=== PATIENT | male | born 1930 | race Caucasian/White ===

== ENCOUNTER 2017-10-01 10:45 | Inpatient (IN) | payer OTHER, MEDICARE ==
--- NOTE | 2017-10-01 11:58 | PDOC ---
History of Present Illness - General History Source: Patient, Sibling (Sister) Exam Limitations: No Limitations - History of Present Illness Initial Comments: Pt, with PMH of prostate CA, A-fib (on warfarin), HTN, cardiac bypass, and UTI, presents to the ER for complaints of generalized fatigue and weakness, and decreased appetite over the past week ("just not feeling well"). He has been consuming PO liquids and having increased urinary volume due to a pill given to him by his urologist (Dr. Ward). He has had decreased appetite and has not been eating his usual amount, associated with a small amount of stool over the past 2 days. He denies fevers/chills, syncope, vertigo, chest pain, SOB, abdominal pain, diarrhea/constipation, urinary frequency or dysuria, hematuria or blood in BM, joint pain, or leg swelling. His sister and nephew are at bedside, and deny any behavior changes or AMS. Pt is able to ambulate on his own and perform his ADLs. 10/01/17 12:33 <Ora Valentine - Last Filed: 10/01/17 16:08> <Sallie Ayoub - Last Filed: 10/01/17 16:12> - General Chief Complaint: Weakness Stated Complaint: Weakness Time Seen by Provider: 10/01/17 11:56 Past History - Travel Traveled outside of the country in the last 30 days: No Close contact w/someone who was outside of country & ill: No - Past Medical History Anemia: No Asthma: No Cancer: Yes (prostate) Cardiac Disorders: Yes (CAD/bypass) Hx Myocardial Infarction: No CVA: No COPD: No CHF: No Dementia: No Diabetes: No GI Disorders: No Disorders: No HTN: Yes Hypercholesterolemia: No Liver Disease: No Seizures: No Thyroid Disease: No - Surgical History Abdominal Surgery: No Appendectomy: No Cardiac Surgery: Yes (By pass) Cholecystectomy: No Lung Surgery: No Neurologic Surgery: No Orthopedic Surgery: No - Suicide/Smoking/Psychosocial Hx Smoking History: Former smoker Have you smoked in the past 12 months: No If you are a former smoker, when did you quit?: 1984 Information on smoking cessation initiated: No Hx Alcohol Use: No Drug/Substance Use Hx: No Substance Use Type: None Hx Substance Use Treatment: No <Ora Valentine - Last Filed: 10/01/17 16:08> <Sallie Ayoub - Last Filed: 10/01/17 16:12> - Past Medical History Allergies/Adverse Reactions: Allergies Allergy/AdvReac Type Severity Reaction Status Date / Time No Known Drug Allergies AdvReac Severe Verified 10/01/17 11:03 nystatin [From Bio-Statin] AdvReac Severe Verified 10/01/17 11:04 Home Medications: Ambulatory Orders Amlodipine Besylate [Norvasc] 10 mg PO DAILY 08/03/12 Lisinopril [Prinivil] 40 mg PO DAILY 08/03/12 Cyanocobalamin [Vitamin B12 -] 1,000 mcg PO DAILY 01/08/15 Review of Systems - Review of Systems Able to Perform ROS?: Yes Is the patient limited Beninese proficient: No Constitutional: Yes: Loss of Appetite, Malaise, Weakness, Weight Stable. No: Chills, Diaphoresis, Fever, Night Sweats HEENTM: No: Blurred Vision, Recent change in vision, Hearing Loss, Difficulty Swallowing Respiratory: No: Cough, Orthopnea, Shortness of Breath Cardiac (ROS): No: Chest Pain, Edema, Irregular Heart Rate, Lightheadedness, Palpitations, Syncope, Chest Tightness ABD/GI: Yes: Poor Appetite. No: Abdominal Distended, Blood Streaked Bowels, Constipated, Diarrhea, Nausea, Poor Fluid Intake, Rectal Bleeding, Vomiting, Abdominal cramping : No: Burning, Dysuria, Discharge, Frequency, Flank Pain, Hematuria, Incontinence, Pain, Urgency Musculoskeletal: Yes: Muscle Weakness. No: Back Pain, Joint Pain, Joint Swelling, Muscle Pain Integumentary: No: Rash, Sweating Neurological: Yes: Weakness. No: Headache, Numbness, Seizure, Unsteady Gait, Ataxia, Dizziness Psychiatric: Yes: Change in Appetite. No: Sleep Pattern Change Endocrine: Yes: Increased Urine. No: Increased Thirst, Change in Weight Hematologic/Lymphatic: No: Anemia, Blood Clots, Easy Bleeding All Other Systems: Reviewed and Negative <Ora Valentine - Last Filed: 10/01/17 16:08> *Physical Exam - Vital Signs Last Vital Signs Temp Pulse Resp BP Pulse Ox 98 F 81 14 110/63 98 10/01/17 11:04 10/01/17 11:04 10/01/17 11:04 10/01/17 11:04 10/01/17 11:04 - Physical Exam General Appearance: Yes: Nourished, Appropriately Dressed, Thin. No: Apparent Distress HEENT: positive: EOMI, PK, Normal ENT Inspection, Normal Voice, Pharynx Normal , Hearing Grossly Normal. negative: Scleral Icterus (R), Scleral Icterus (L), Pharyngeal Erythema, Tonsillar Exudate, Tonsillar Erythema, Rhinorrhea Neck: positive: Trachea midline, Normal Thyroid, Supple. negative: Tender, Rigid, Lymphadenopathy (R), Lymphadenopathy (L) Respiratory/Chest: positive: Lungs Clear. negative: Chest Tender, Normal Breath Sounds (crackles over R posterior lung field), Respiratory Distress, Accessory Muscle Use, Stridor, Wheezing, Dullness Cardiovascular: positive: Regular Rhythm, Regular Rate, S1, S2. negative: Edema , JVD, Murmur Vascular Pulses: Dorsalis-Pedis (R): 4+, Doralis-Pedis (L): 4+ Gastrointestinal/Abdominal: positive: Normal Bowel Sounds, Flat, Soft. negative : Tender, Organomegaly, Pulsatile Mass, Guarding, Rebound, Tenderness Rectal Exam: positive: deferred Lymphatic: negative: Adenopathy, Tenderness Musculoskeletal: positive: Normal Inspection. negative: CVA Tenderness Extremity: positive: Normal Capillary Refill, Normal Inspection, Normal Range of Motion, Pelvis Stable. negative: Tender Integumentary: positive: Normal Color, Dry, Warm Neurologic: positive: document control clerk II-XII NML intact, Fully Oriented, Alert, Normal Mood/ Affect, Normal Response, Motor Strength 5/5. negative: EOM Palsy, Facial Droop , Numbness, Sensory Deficit <Ora Valentine - Last Filed: 10/01/17 16:08> - Vital Signs Last Vital Signs Temp Pulse Resp BP Pulse Ox 98.9 F 70 16 123/73 98 10/01/17 15:30 10/01/17 15:30 10/01/17 15:30 10/01/17 15:30 10/01/17 15:30 <Sallie Ayoub - Last Filed: 10/01/17 16:12> Heart Score/ECG Review - History History: Slightly suspicious - Age Age: >/= 65 - Risk Factors Risk Factors Heart Score: Yes Hx Hypertension Based on the list above the patient has:: 1-2 risk factors - ECG Impressions Non-specific ST Elevation: No Ischemic Changes: No Bradycardia: No Torsades uvaldo Pointes: No WPW: No Comment:: Rate: 71 AL: 232 QTc: 456 10/01/17 12:46 <Ora Valentine - Last Filed: 10/01/17 16:08> ED Treatment Course - LABORATORY CBC & Chemistry Diagram: 10/01/17 13:30 10/01/17 13:30 <Ora Valentine - Last Filed: 10/01/17 16:08> - LABORATORY CBC & Chemistry Diagram: 10/01/17 13:30 10/01/17 13:30 - ADDITIONAL ORDERS Additional order review: Laboratory Results 10/01/17 10/01/17 10/01/17 14:18 13:30 13:30 WBC RBC Hgb Hct MCV MCH MCHC RDW Plt Count MPV Absolute Neuts (auto) Neutrophils % Lymphocytes % Monocytes % Eosinophils % Basophils % Nucleated RBC % PT with INR INR PTT (Actin FS) Sodium 136 Potassium 4.4 Chloride 101 Carbon Dioxide 28 Anion Gap 7 L BUN 40 H Creatinine 1.5 H Creat Clearance w eGFR 44.37 Random Glucose 113 H Calcium 8.5 Total Bilirubin 0.4 AST 25 D ALT 28 D Alkaline Phosphatase 69 Troponin I Cancelled < 0.02 Total Protein 6.9 Albumin 3.2 L Urine Color Dkyellow Urine Appearance Cloudy Urine pH 5.0 Ur Specific [place] 1.018 Urine Protein 2+ H Urine Glucose (UA) Negative Urine Ketones Negative Urine Blood 2+ H Urine Nitrite Positive Urine Bilirubin Negative Urine Urobilinogen Negative Ur Leukocyte Esterase 3+ H D Urine WBC (Auto) 1277 Urine RBC (Auto) 5 Ur Epithelial Cells Rare Urine Bacteria Many Hyaline Casts 4 Urine Mucus Rare 10/01/17 10/01/17 13:30 13:30 WBC 7.9 RBC 4.41 Hgb 12.9 Hct 37.9 MCV 86.1 MCH 29.3 MCHC 34.0 RDW 14.5 D Plt Count 189 D MPV 9.0 Absolute Neuts (auto) 6.4 Neutrophils % 80.2 Lymphocytes % 8.4 Monocytes % 11.0 H Eosinophils % 0.1 Basophils % 0.3 Nucleated RBC % 0 PT with INR 24.60 H INR 2.18 H PTT (Actin FS) 32.0 Sodium Potassium Chloride Carbon Dioxide Anion Gap BUN Creatinine Creat Clearance w eGFR Random Glucose Calcium Total Bilirubin AST ALT Alkaline Phosphatase Troponin I Total Protein Albumin Urine Color Urine Appearance Urine pH Ur Specific [place] Urine Protein Urine Glucose (UA) Urine Ketones Urine Blood Urine Nitrite Urine Bilirubin Urine Urobilinogen Ur Leukocyte Esterase Urine WBC (Auto) Urine RBC (Auto) Ur Epithelial Cells Urine Bacteria Hyaline Casts Urine Mucus 10/01/17 13:30 RBC 4.41 MCV 86.1 MCHC 34.0 RDW 14.5 D MPV 9.0 Neutrophils % 80.2 Lymphocytes % 8.4 Monocytes % 11.0 H Eosinophils % 0.1 Basophils % 0.3 - Medications Given in the ED: ED Medications Discontinued Medications Generic Name Dose Route Start Last Admin Trade Name Freq PRN Reason Stop Dose Admin Sodium Chloride 500 mls @ 1,000 mls/hr 10/01/17 12:20 10/01/17 13:56 Normal Saline - IV 10/01/17 12:49 Not Given ASDIR STA Sodium Chloride 1,000 mls @ 1,000 mls/hr 10/01/17 12:28 10/01/17 13:56 Normal Saline - IV 10/01/17 13:19 1,000 mls/hr ASDIR STA Administration Ceftriaxone Sodium 1,000 mg/ 50 mls @ 100 mls/hr 10/01/17 15:04 10/01/17 15: 06 Dextrose IVPB 10/01/17 15:33 100 mls/hr ONCE ONE Administration <Sallie Ayoub - Last Filed: 10/01/17 16:12> Medical Decision Making - Medical Decision Making Pt seen at bedside, also will be seen by Dr. Ayoub. Pt appears comfortable, vitals stable, complaining of generalized weakness/decreased appetite over past week. No focal findings on exam. Considering prior UTIs, use of blood thinners and prior history of prostate cancer, considering infection (UTI/pneumonia) vs electrolyte abnormalities vs anemia vs mets. Ordered CBC, CMP, ECG/trop (r/o ACS ), UA, urine culture, coags chest x-ray PA/Lat. Providing 1 L NS and will assess improvement. Pt has no history of CHF or fluid overload. 10/01/17 12:30 Chest x-ray shows no acute pathology. CBC WNL. Urine sample sent for UA and culture. Pt receiving 1L NS. Pt comfortable in holding room. 10/01/17 14:27 UA positive for UTI. No increased WBC, no CVA tenderness. Will provide 1g ceftriaxone IV for infection. Will admit for observation given pt weakness, decreased appetite. 10/01/17 15:[address] Nicholson to discuss admission (per cargo operations agent), and will discuss if consult with Dr. Ward is needed. Pt receiving antibiotics. 10/01/17 15:[address] Nicholson, awaiting call back. 10/01/17 15:21 Will admit to observation per Dr. Nicholson. Placed consult order for Dr. Ward. Pt comfortable. 10/01/17 15:27 <Ora Valentine - Last Filed: 10/01/17 16:08> *DC/Admit/Observation/Transfer - Discharge Dispostion Decision to Admit order: Yes <Ora Valentine - Last Filed: 10/01/17 16:08> <Sallie Ayoub - Last Filed: 10/01/17 16:12> Diagnosis at time of Disposition: [place] (acute kidney injury) Urinary tract infection Qualifiers: Urinary tract infection type: acute cystitis Hematuria presence: with hematuria Qualified Code(s): N30.01 - Acute cystitis with hematuria - Discharge Dispostion Condition at time of disposition: Stable - Referrals Referrals: Aram Nicholson MD [Primary Care Provider] - - Patient Instructions - Post Discharge Activity
[2017-10-01] MEDS ORDERED: SODIUM CHLORIDE 500 ML IV STA (12:20)
[2017-10-01] MEDS ORDERED: SODIUM CHLORIDE 1,000 ML IV STA (12:28)
[2017-10-01 14:10] LABS: BASO % 0.3 % (0-2.0); EOS % 0.1 % (0-4.5); HEMATOCRIT 37.9 % (35.4-49); HEMOGLOBIN 12.9 GM/dL (11.7-16.9); LYMPH % 8.4 % (8-40); MCH 29.3 pg (25.7-33.7); MEAN CELL VOLUME 86.1 fl (80-96); NEUT % 80.2 % (42.8-82.8); PLATELET COUNT 189 K/MM3 (134-434); RBC 4.41 M/mm3 (4.00-5.60); RDW 14.5 % (11.9-15.9); WHITE BLOOD COUNT 7.9 K/mm3 (4.0-10.0)
--- NOTE | 2017-10-01 14:12 | PDOC ---
Attending Attestation - Medical Decision Making 10/01/17 14:17 Chest X-Ray was reviewed by Dr. Ayoub and over-read by Radiology. Impression: Antwon of cardiomegaly, CHF, pneumonia. No pneumothorax, or pleural effusion is seen. <Poonam Spaulding - Last Filed: 10/01/17 14:17> - Resident Resident Name: Ora Valentine - ED Attending Attestation I have performed the following: I have examined & evaluated the patient, The case was reviewed & discussed with the resident, I agree w/resident's findings & plan - HPI HPI: 10/01/17 16:08 87-year-old male, with a past medical history of BPH, prostate cancer (in remission), a-fib (on Coumadin), HTN, hyperlipidemia, COPD, and osteoarthritis, who presents to the ED with 1 week of frequency, loss of appetite, and weakness. - Physicial Exam PE: 10/01/17 16:08 NAD, well appearing, MMM, nl conjunctiva, anicteric; neck supple. lungs clear, RRR, abdomen soft nontender. no CVAT. VALDEZ x4, no focal neuro deficits. No peripheral edema. normal color for ethnicity, WWP. - Medical Decision Making Difrancesco 87 YOM with h/o BPH, prostate ca in remission, UTIs, Afib on coumadin, HTN, HLD, osteoarthritis, COPD Presenting with 1 week history of generalized weakness, decreased appetite. +urinary frequency. Vital signs reviewed, wnl. no fever. Medical Plan: CBC, CMP, UA, urine cx, ECG, trops/card panel, CXR Prior notes reviewed, including admissions, discharges and consultations. laboratory results and imaging reviewed, notable for elevated Cr to 1.5 and positive UA for infection, will f/u urine cs. . will dose IVF for hydration and trend Cr, ceftriaxone for UTI. Dispo: Admit for UTI and weakness, [place]. Discussed results and management plan with pt at bedside, agree with impression and plan 10/01/17 16:06 10/01/17 16:10 10/01/17 16:11 <Sallie Ayoub - Last Filed: 10/01/17 16:11> Heart Score/ECG Review - ECG Impressions Comment:: 10/01/17 16:08 EKG normal sinus rhythm, no interval abnormalities, narrow QRS, ST and T wave segments and morphology normal. Nonspecific T wave abnormalities <Sallie Ayoub - Last Filed: 10/01/17 16:11>
[2017-10-01 14:23] LABS: INR 2.18 (0.83-1.09); PROTHROMBIN TIME (PATIENT) 24.6 SEC (9.7-13.0)
[2017-10-01 14:26] LABS: URINE APPEARANCE CLOUDY; URINE BILIRUBIN NEGATIVE (<2.0 mg/dL); URINE COLOR DKYELLOW; URINE GLUCOSE (UA) NEGATIVE (NEGATIVE); URINE KETONE NEGATIVE (NEGATIVE); URINE NITRITE POSITIVE (NEGATIVE); URINE UROBILINOGEN NEGATIVE mg/dL (0.2-1.0)
[2017-10-01 14:30] LABS: URINE LEUK ESTERASE 3+ (NEGATIVE); URINE PROTEIN 2+ (NEGATIVE)
[2017-10-01 14:32] LABS: ALBUMIN 3.2 g/dl (3.4-5.0); ANION GAP 7 (8-16); BILIRUBIN,TOTAL 0.4 mg/dL (0.2-1.0); BLOOD UREA NITROGEN 40 mg/dL (7-18); CALCIUM 8.5 mg/dL (8.5-10.1); CHLORIDE 101 mmol/L (98-107); CO2 28 mmol/L (21-32); CREATININE 1.5 mg/dL (0.7-1.3); GLUCOSE,RANDOM 113 mg/dL (74-106); POTASSIUM 4.4 mmol/L (3.5-5.1); SGOT/AST 25 U/L (15-37); SGPT/ALT 28 U/L (12-78); SODIUM 136 mmol/L (136-145); TOT PROT 6.9 g/dl (6.4-8.2)
[2017-10-01 14:34] LABS: ALK PHOS 69 U/L (45-117)
[2017-10-01 14:47] LABS: EPI CELLS RARE /HPF (FEW); URINE BACTERIA MANY /hpf (NONE SEEN); URINE HYALINE CAST 4 /lpf; URINE MUCUS RARE
[2017-10-01] MEDS ORDERED: CEFTRIAXONE 1,000 MG in DEXTROSE 5%-WATER - 50 ML IVPB ONE (15:04)
[2017-10-01] MEDS ORDERED: CEFTRIAXONE 1 GM/50 ML BAG ONE (15:07)
--- NOTE | 2017-10-01 18:41 | HP ---
Admitting History and Physical - Primary Care Physician PCP: Aram Nicholson - Admission Chief Complaint: weakness x 3 days History of Present Illness: 87 YO M with PMH of prostate CA (2002--s/p seed implants), prostatism, bladder neoplasm, A-fib (on warfarin), HTN, and Hx of UTI, presents to the ER for complaints of generalized fatigue and weakness, and decreased appetite since this past Thursday. He denies aches and pains, n-v, dizziness, dysuria, blood in stool or urine. He has been consuming PO liquids and having increased urinary volume due to a pill given to him by his urologist (Dr. Ward) 2 weeks ago. He feels somehat better now and seems to have regained a little bit of appetite. History Source: Patient, Medical Record - Past Medical History Cardiovascular: Yes: AFIB, HTN, Hyperlipdemia, Other (s/p stenting) Pulmonary: Yes: COPD Gastrointestinal: Yes: Diverticulosis, Other (Lt ing hernia) Renal/: Yes: Renal Inusuff (mild), Renal Calculi (Lt side) Musculoskeletal: Yes: Chronic low back pain, Osteoarthritis - Smoking History Smoking history: Former smoker Have you smoked in the past 12 months: No If you are a former smoker, when did you quit?: 1984 - Alcohol/Substance Use Hx Alcohol Use: No History of Substance Use: reports: None - Social History Usual Living Arrangement: Yes: Other (with relatives) ADL: Independent 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 History of Recent Travel: No Home Medications - Allergies Allergies/Adverse Reactions: Allergies Allergy/AdvReac Type Severity Reaction Status Date / Time No Known Drug Allergies AdvReac Severe Verified 10/01/17 11:03 nystatin [From Bio-Statin] AdvReac Severe Verified 10/01/17 11:04 - Home Medications Home Medications: Ambulatory Orders Amlodipine Besylate [Norvasc] 10 mg PO DAILY 08/03/12 Lisinopril [Prinivil] 40 mg PO DAILY 08/03/12 Cyanocobalamin [Vitamin B12 -] 1,000 mcg PO DAILY 01/08/15 Family Disease History - Family Disease History Family History: Unremarkable Review of Systems - Review of Systems Constitutional: reports: Weakness Eyes: reports: No Symptoms HENT: reports: No Symptoms Neck: reports: No Symptoms Cardiovascular: reports: No Symptoms Respiratory: reports: No Symptoms Gastrointestinal: reports: No Symptoms Genitourinary: reports: Frequency Breasts: reports: No Symptoms Reported Musculoskeletal: reports: No Symptoms Integumentary: reports: No Symptoms Neurological: reports: No Symptoms Endocrine: reports: No Symptoms Hematology/Lymphatic: reports: No Symptoms Psychiatric: reports: No Symptoms Physical Examination Vital Signs: Vital Signs Temperature 98.9 F 10/01/17 15:30 Pulse Rate 70 10/01/17 15:30 Respiratory Rate 16 10/01/17 15:30 Blood Pressure 123/73 10/01/17 15:30 O2 Sat by Pulse Oximetry (%) 98 10/01/17 15:30 Findings/Remarks: skin--no rashes; acute lesions appreciated head--NC eyes--midline; anicteric; eomi oral--no droop; no mucosal lesions appreciated neck--supple, no masses lungs--distant BS; unlabored; clear heart--irreg abd--benign; Lt hernia back--no CVAT ext--no edema; degen changes of feet & ankles; no gross ischemic changes neuro--alert; lucid to his baseline; coherent; no focla motor/sensory deficits or ataxia; speech fluent; thoughts & cognition intact Labs: CBC, BMP 10/01/17 13:30 10/01/17 13:30 Imaging - Results Chest X-ray: Report Reviewed Problem List - Problems (1) Urinary tract infection Assessment/Plan: based on the UA; will initiate Abs, await for culture reports. Code(s): N39.0 - URINARY TRACT INFECTION, SITE NOT SPECIFIED Qualifiers: Urinary tract infection type: acute cystitis Hematuria presence: with hematuria Qualified Code(s): N30.01 - Acute cystitis with hematuria (2) Dehydration, moderate Assessment/Plan: 2nd poor po intake during this acute development; gentle IV hydration Code(s): E86.0 - DEHYDRATION (3) Atrial fibrillation Assessment/Plan: resume a-c Code(s): I48.91 - UNSPECIFIED ATRIAL FIBRILLATION Qualifiers: Atrial fibrillation type: chronic Qualified Code(s): I48.2 - Chronic atrial fibrillation (4) Hypertension Assessment/Plan: Bp okay at this time; will hold CCB and CELINA for now until better hydrated Code(s): I10 - ESSENTIAL (PRIMARY) HYPERTENSION Qualifiers: Hypertension type: essential hypertension Qualified Code(s): I10 - Essential (primary) hypertension Assessment/Plan 87 YO M with multiple medical problems on a-c; who has a UTI and is dehydrated, amid c/o systemic weakness ~~~~~~~~~~~~~~~~~ dr Nicholson
[2017-10-01] MEDS ORDERED: WARFARIN NA 3 MG TABLET PO ONE (19:00)
[2017-10-01] MEDS ORDERED: WARFARIN NA 1 MG TABLET (FP) PO ONE (19:00)
[2017-10-01] MEDS: DEXTROSE 5%-0.45% SALINE 1,000 ML IV SCH (22:13)
[2017-10-02 03:50] VITALS: BMI 20.2
[2017-10-02 08:26] LABS: HEMATOCRIT 34.6 % (35.4-49); HEMOGLOBIN 11.9 GM/dL (11.7-16.9); MCH 29.4 pg (25.7-33.7); MCHC 34.2 g/dl (32.0-35.9); MEAN CELL VOLUME 85.8 fl (80-96); MEAN PLT VOLUME 8.7 fl (7.5-11.1); PLATELET COUNT 170 K/MM3 (134-434); RBC 4.04 M/mm3 (4.00-5.60); RDW 14.2 % (11.9-15.9); WHITE BLOOD COUNT 11.7 K/mm3 (4.0-10.0)
[2017-10-02 08:41] LABS: PROTHROMBIN TIME (PATIENT) 37.4 SEC (9.7-13.0)
[2017-10-02 08:50] LABS: INR 3.31 (0.83-1.09)
[2017-10-02 09:01] LABS: ANION GAP 9 (8-16); BLOOD UREA NITROGEN 30 mg/dL (7-18); CALCIUM 7.7 mg/dL (8.5-10.1); CHLORIDE 105 mmol/L (98-107); CO2 24 mmol/L (21-32); CREATININE 1.4 mg/dL (0.7-1.3); GLUCOSE,RANDOM 119 mg/dL (74-106); SODIUM 138 mmol/L (136-145)
[2017-10-02] MEDS ORDERED: cefTRIAXone SODIUM 1 GM VIAL ONE (09:06)
[2017-10-02] MEDS ORDERED: DEXTROSE 5%-WATER - 50 ML IVPB ONE (09:06)
[2017-10-02] MEDS ORDERED: CEFTRIAXONE 1 GM in DEXTROSE 5%-WATER - 50 ML IVPB ONE (10:00)
[2017-10-02] MEDS ORDERED: CLOPIDOGREL BISULFATE 75 MG TABLET (FP) PO SCH (10:00)
--- NOTE | 2017-10-02 11:13 | EKG ---
Test Reason : Blood Pressure : / mmHG Vent. Rate : 071 BPM Atrial Rate : 071 BPM P-R Int : 232 ms QRS Dur : 096 ms QT Int : 420 ms P-R-T Axes : 044 014 038 degrees QTc Int : 456 ms SINUS RHYTHM WITH 1ST DEGREE A-V BLOCK WITH PREMATURE ATRIAL COMPLEXES WITH ABERRANT CONDUCTION OTHERWISE NORMAL ECG WHEN COMPARED WITH ECG OF 08-JAN-2015 08:26, SINUS RHYTHM HAS REPLACED ATRIAL FIBRILLATION Confirmed by NEETA HOPPER, DARREL ([id number]) on 10/02/2017 11:12:31 AM Referred By: Confirmed By:DARREL SANTACRUZ MD
[2017-10-02] MEDS: DEXTROSE 5%-0.45% SALINE 1,000 ML IV SCH ×2 (12:12→19:54)
[2017-10-02] MEDS ORDERED: ONDANSETRON 4 MG/2 ML VIAL IVPUSH PRN (16:31)
--- NOTE | 2017-10-02 16:39 | PN ---
Progress Note (short form) - Note Progress Note: .........medical........ Current Medications Cefuroxime Axetil (Ceftin -) 500 mg PO BID [facility] Dextrose/Sodium Chloride (D5-1/2ns -) 1,000 mls @ 75 mls/hr IV ASDIR [facility] Last Admin: 10/02/17 12:12 Dose: 75 mls/hr Metoprolol Succinate (Toprol Xl -) 25 mg PO DAILY [facility] Ondansetron HCl (Zofran Injection) 4 mg IVPUSH Q8H PRN PRN Reason: NAUSEA Laboratory Results - last 24 hr 10/02/17 10/02/17 10/02/17 07:00 07:00 07:00 WBC 11.7 H RBC 4.04 Hgb 11.9 Hct 34.6 L MCV 85.8 MCH 29.4 MCHC 34.2 RDW 14.2 Plt Count 170 MPV 8.7 PT with INR 37.40 H INR 3.31 H* Sodium 138 Potassium 4.0 Chloride 105 Carbon Dioxide 24 Anion Gap 9 BUN 30 H Creatinine 1.4 H Creat Clearance w eGFR 48.05 Random Glucose 119 H Calcium 7.7 L Vital Signs Temperature 97.6 F 10/02/17 14:56 Pulse Rate 83 10/02/17 14:56 Respiratory Rate 20 10/02/17 14:56 Blood Pressure 138/88 10/02/17 14:56 O2 Sat by Pulse Oximetry (%) 98 10/02/17 09:00 CC; nausea after lunch `````````````````````````` skin--NL color eyes--mid line heart--RR lungs--unlabored abd--soft, BS quiet ext--no edema neuro--alert; verbal; asthenic; no focal deficits `````````````````````````````````````````````` Summ > UTI--Gm (-) org pending; cont with current Abs > dehydration--renal funct improved; cont IVF > nausea--no vomiting; cause not clear; had no BM today; occured post prandially ; PRN Zofran > Htn w/ ASHD--BP okay today; will start BB in AM; Hold CCB and CELINA > pATF--on warf; rate in sinus as per EKG; hold A-c because of high INR > High glucose--on dextrose IVF ~~~~~~~~~~~~~~~~~~ Dr Nicholson Problem List - Problems (1) Urinary tract infection Code(s): N39.0 - URINARY TRACT INFECTION, SITE NOT SPECIFIED Qualifiers: Urinary tract infection type: acute cystitis Hematuria presence: with hematuria Qualified Code(s): N30.01 - Acute cystitis with hematuria (2) Dehydration, moderate Code(s): E86.0 - DEHYDRATION (3) Atrial fibrillation Code(s): I48.91 - UNSPECIFIED ATRIAL FIBRILLATION Qualifiers: Atrial fibrillation type: chronic Qualified Code(s): I48.2 - Chronic atrial fibrillation (4) Hypertension Code(s): I10 - ESSENTIAL (PRIMARY) HYPERTENSION Qualifiers: Hypertension type: essential hypertension Qualified Code(s): I10 - Essential (primary) hypertension
[2017-10-03] MEDS: DEXTROSE 5%-0.45% SALINE 1,000 ML IV SCH (02:01)
[2017-10-03 08:36] LABS: HEMATOCRIT 34.9 % (35.4-49); HEMOGLOBIN 11.9 GM/dL (11.7-16.9); MCH 29.3 pg (25.7-33.7); MCHC 34.2 g/dl (32.0-35.9); MEAN CELL VOLUME 85.8 fl (80-96); MEAN PLT VOLUME 8.6 fl (7.5-11.1); PLATELET COUNT 179 K/MM3 (134-434); RBC 4.07 M/mm3 (4.00-5.60); RDW 14.2 % (11.9-15.9); WHITE BLOOD COUNT 7.4 K/mm3 (4.0-10.0)
[2017-10-03 08:58] LABS: INR 2.93 (0.83-1.09); PROTHROMBIN TIME (PATIENT) 33.1 SEC (9.7-13.0)
[2017-10-03 09:24] LABS: ANION GAP 8 (8-16); BLOOD UREA NITROGEN 23 mg/dL (7-18); CALCIUM 7.8 mg/dL (8.5-10.1); CHLORIDE 105 mmol/L (98-107); CO2 26 mmol/L (21-32); GLUCOSE,RANDOM 127 mg/dL (74-106); POTASSIUM 4.1 mmol/L (3.5-5.1); SODIUM 139 mmol/L (136-145)
[2017-10-03 09:25] LABS: CREATININE 1.1 mg/dL (0.7-1.3)
[2017-10-03] MEDS ORDERED: CEFUROXIME AXETIL 500 MG TABLET PO SCH (10:00)
[2017-10-03] MEDS: metoPROLOL SUCCINATE 25 MG TAB.SR.24H (FP) PO SCH (10:05)
--- NOTE | 2017-10-03 14:56 | PN ---
Progress Note (short form) - Note Progress Note: ^^^^^^^^^^^^^ Medical--inpatient note ^^^^^^^^^^^^ Active Medications Cefuroxime Axetil (Ceftin -) 500 mg PO BID [facility] Last Admin: 10/03/17 10:05 Dose: 500 mg Metoprolol Succinate (Toprol Xl -) 25 mg PO DAILY [facility] Last Admin: 10/03/17 10:05 Dose: 25 mg Ondansetron HCl (Zofran Injection) 4 mg IVPUSH Q8H PRN PRN Reason: NAUSEA Warfarin Sodium (Coumadin -) 1 mg PO DAILY@1800 [facility] Laboratory Results - last 24 hr 10/03/17 10/03/17 10/03/17 07:30 07:30 07:30 WBC 7.4 RBC 4.07 Hgb 11.9 Hct 34.9 L MCV 85.8 MCH 29.3 MCHC 34.2 RDW 14.2 Plt Count 179 MPV 8.6 PT with INR 33.10 H INR 2.93 H Sodium 139 Potassium 4.1 Chloride 105 Carbon Dioxide 26 Anion Gap 8 BUN 23 H Creatinine 1.1 Creat Clearance w eGFR > 60 Random Glucose 127 H Calcium 7.8 L Vital Signs Period Temp Pulse Resp BP Sys/Gardner Pulse Ox Last 24 Hr 97.4 F-98.0 F 72-83 18-20 124-148/58-88 96-96 CC: feels "better" `````````````````` skin--NL color eyes--midline lungs--clear heart--Irreg abd--benign neuro--alert; coherent, non toxic looking `````````````````````````````````````` Summ > 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 PLAN: will need to hold Cephs; and obtain ID consult; check renal US > pATF--rate controlled; cont with BB & a/c; check daily INR > Htn--Bp in adequate range without CCB & CELINA; will hold said meds for the time being > Nausea--resolved > dehydration--resolved with IVF; will stop fluids ~~~~~~~~~~~~~~~~~ Dr Nicholson Problem List - Problems (1) Urinary tract infection Code(s): N39.0 - URINARY TRACT INFECTION, SITE NOT SPECIFIED Qualifiers: Urinary tract infection type: acute cystitis Hematuria presence: with hematuria Qualified Code(s): N30.01 - Acute cystitis with hematuria (2) Dehydration, moderate Code(s): E86.0 - DEHYDRATION (3) Atrial fibrillation Code(s): I48.91 - UNSPECIFIED ATRIAL FIBRILLATION Qualifiers: Atrial fibrillation type: chronic Qualified Code(s): I48.2 - Chronic atrial fibrillation (4) Hypertension Code(s): I10 - ESSENTIAL (PRIMARY) HYPERTENSION Qualifiers: Hypertension type: essential hypertension Qualified Code(s): I10 - Essential (primary) hypertension
[2017-10-03] MEDS ORDERED: WARFARIN NA 1 MG TABLET (FP) PO SCH (18:00)
--- NOTE | 2017-10-03 18:56 | PN ---
Progress Note (short form) - Note Progress Note: ID Consult dictated ESBL UTI Ertapenem 500mg q24h Contact precautions
[2017-10-03] MEDS ORDERED: PT OWN MED DRAWER 7, Y5N ONE (19:58)
[2017-10-03] MEDS: ERTAPENEM SODIUM 0.5 GM in SODIUM CHLORIDE 50 ML IVPB SCH (21:11)
[2017-10-04 07:14] LABS: ANION GAP 7 (8-16); BLOOD UREA NITROGEN 19 mg/dL (7-18); CALCIUM 7.9 mg/dL (8.5-10.1); CHLORIDE 108 mmol/L (98-107); CO2 27 mmol/L (21-32); CREATININE 1.1 mg/dL (0.7-1.3); GLUCOSE,RANDOM 90 mg/dL (74-106); SODIUM 142 mmol/L (136-145)
[2017-10-04 07:22] LABS: INR 2.4 (0.83-1.09); PROTHROMBIN TIME (PATIENT) 27.1 SEC (9.7-13.0)
[2017-10-04] MEDS: ERTAPENEM SODIUM 0.5 GM in SODIUM CHLORIDE 50 ML IVPB SCH (09:36)
[2017-10-04] MEDS: metoPROLOL SUCCINATE 25 MG TAB.SR.24H (FP) PO SCH (09:36)
--- NOTE | 2017-10-04 10:31 | PN ---
Progress Note, Physician History of Present Illness: Awake, alert C/O urinary frequency No c/o dysuria/ hematuria No suprapubic or flank pain - Current Medication List Current Medications: Active Medications Ertapenem 0.5 gm/ Sodium (Chloride) 50 mls @ 100 mls/hr IVPB DAILY [facility]; Protocol Last Admin: 10/04/17 09:36 Dose: 100 mls/hr Metoprolol Succinate (Toprol Xl -) 25 mg PO DAILY [facility] Last Admin: 10/04/17 09:36 Dose: 25 mg Ondansetron HCl (Zofran Injection) 4 mg IVPUSH Q8H PRN PRN Reason: NAUSEA Warfarin Sodium (Coumadin -) 1 mg PO DAILY@1800 [facility] Last Admin: 10/03/17 17:32 Dose: 1 mg - Objective Vital Signs: Vital Signs Temperature 98.3 F 10/04/17 05:00 Pulse Rate 71 10/04/17 05:00 Respiratory Rate 18 10/04/17 05:00 Blood Pressure 135/77 10/04/17 05:00 O2 Sat by Pulse Oximetry (%) 96 10/03/17 21:00 Constitutional: Yes: No Distress Eyes: Yes: Conjunctiva Clear Cardiovascular: Yes: Regular Rate and Rhythm, S1, S2 Respiratory: Yes: CTA Bilaterally Gastrointestinal: Yes: Normal Bowel Sounds, Soft. No: Tenderness Genitourinary: No: CVA Tenderness - Left, CVA Tenderness - Right Edema: No Labs: CBC, BMP 10/03/17 07:30 10/04/17 06:15 INR, PTT INR 2.40 (0.83-1.09) H 10/04/17 06:15 Assessment/Plan UTI- ESBL Leukocytosis- improved Continue ertapenem Contact precautions
--- NOTE | 2017-10-04 10:58 | PN ---
Progress Note (short form) - Note Progress Note: medical Current Medications Ertapenem 0.5 gm/ Sodium (Chloride) 50 mls @ 100 mls/hr [facility]PB [facility]; Protocol Last Admin: 10/04/17 09:36 Dose: 100 mls/hr Metoprolol Succinate (Toprol Xl -) 25 mg PO DAILY [facility] Last Admin: 10/04/17 09:36 Dose: 25 mg Ondansetron HCl (Zofran Injection) 4 mg IVPUSH Q8H PRN PRN Reason: NAUSEA Warfarin Sodium (Coumadin -) 1 mg PO DAILY@1800 [facility] Last Admin: 10/03/17 17:32 Dose: 1 mg Laboratory Results - last 24 hr 10/04/17 10/04/17 06:15 06:15 PT with INR 27.10 H INR 2.40 H Sodium 142 Potassium 4.0 Chloride 108 H Carbon Dioxide 27 Anion Gap 7 L BUN 19 H Creatinine 1.1 Creat Clearance w eGFR > 60 Random Glucose 90 D Calcium 7.9 L Vital Signs Temperature 98.3 F 10/04/17 05:00 Pulse Rate 71 10/04/17 05:00 Respiratory Rate 18 10/04/17 05:00 Blood Pressure 135/77 10/04/17 05:00 O2 Sat by Pulse Oximetry (%) 96 10/03/17 21:00 CC: no complaints voiced today `````````````````` skin--NL color eyes--midline lungs--clear heart--Irreg abd--benign neuro--alert; coherent, non toxic looking `````````````````````````````````````` Summ > 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 PLAN: see Id note ; on Ertapenem, check renal US > pATF--rate controlled; cont with BB & a/c; check daily INR > Htn--Bp in adequate range without CCB & CELINA; will hold said meds for the time being ~~~~~~~~~~~~~~~~~ Dr Commentucci Problem List - Problems (1) Urinary tract infection Code(s): N39.0 - URINARY TRACT INFECTION, SITE NOT SPECIFIED Qualifiers: Urinary tract infection type: acute cystitis Hematuria presence: with hematuria Qualified Code(s): N30.01 - Acute cystitis with hematuria (2) Dehydration, moderate Code(s): E86.0 - DEHYDRATION (3) Atrial fibrillation Code(s): I48.91 - UNSPECIFIED ATRIAL FIBRILLATION Qualifiers: Atrial fibrillation type: chronic Qualified Code(s): I48.2 - Chronic atrial fibrillation (4) Hypertension Code(s): I10 - ESSENTIAL (PRIMARY) HYPERTENSION Qualifiers: Hypertension type: essential hypertension Qualified Code(s): I10 - Essential (primary) hypertension
--- NOTE | 2017-10-04 11:47 | CONS ---
DATE OF CONSULTATION: DATE OF DICTATION: 10/04/2017 An 87-year-old male evaluated for positive urine culture, ESBL. The patient was admitted to the hospital on October 01, 2017, with complaints of generalized weakness, fatigue, and decreased oral intake. He also complained of urinary frequency, possibly secondary to a new medication prescribed by his urologist. His hospital course was notable for pyuria and leukocytosis. Urine culture is now growing ESBL. He denies dysuria or hematuria. No complaints of suprapubic or flank pain. No fever or chills. PAST MEDICAL HISTORY: Positive for prostate cancer, atrial fibrillation, hypertension, coronary artery disease. PAST SURGICAL HISTORY: Status post coronary artery bypass grafting. ALLERGIES: NYSTATIN. MEDICATIONS: Norvasc; Prinivil; Ceftin; Toprol. SOCIAL HISTORY: He resides at home. He is a former smoker. No history of alcohol abuse. SYSTEMS REVIEW: Neurologic: No loss of consciousness, seizure activity, focal weakness. Cardiac: Negative chest pain or palpitations. Respiratory: Negative cough or sputum production. Gastrointestinal: Negative vomiting or diarrhea. Genitourinary: As per HPI. LABORATORY DATA: White count on admission 11.7, presently 7.4; hematocrit 34.9; platelet count 179. BUN 23, creatinine 1.1. Urinalysis with 1277 white cells. Urine culture with ESBL. PHYSICAL EXAMINATION: General: He is awake and alert. He is not acutely toxic-appearing. Vital Signs: Temperature 98.0, blood pressure 138/85, pulse 75 and regular, respirations 18/min. HEENT: Sclerae anicteric. Heart Sounds: S1, S2. Lungs: Clear. Abdomen: Soft. No tenderness elicited. No mass, rebound, or rigidity. Extremities: Negative for edema. IMPRESSION: 1. Extended-spectrum betalactamase urinary tract infection. 2. History of prostate cancer. 3. Leukocytosis, resolved. Advised treatment of urinary tract infection with ertapenem 500 mg IV piggyback daily; contact precautions; will follow. Thank you for the kind referral. DARREL FIGUEROA M.D. [id number]
[2017-10-04] MEDS: WARFARIN NA 2 MG TABLET (UD) PO SCH (17:25)
[2017-10-05 07:39] LABS: INR 1.98 (0.83-1.09); PROTHROMBIN TIME (PATIENT) 22.4 SEC (9.7-13.0)
[2017-10-05] MEDS: metoPROLOL SUCCINATE 25 MG TAB.SR.24H (FP) PO SCH (09:25)
[2017-10-05] MEDS: ERTAPENEM SODIUM 0.5 GM in SODIUM CHLORIDE 50 ML IVPB SCH (10:53)
[2017-10-05] MEDS: WARFARIN NA 2 MG TABLET (UD) PO SCH (17:44)
--- NOTE | 2017-10-05 18:04 | PN ---
Progress Note (short form) - Note Progress Note: >>>>>>>>>>>> medical note <<<<<<<<<<<<< Current Medications Ertapenem 0.5 gm/ Sodium (Chloride) 50 mls @ 100 mls/hr IVPB DAILY [facility]; Protocol Last Admin: 10/05/17 10:53 Dose: 100 mls/hr Metoprolol Succinate (Toprol Xl -) 25 mg PO DAILY [facility] Last Admin: 10/05/17 09:25 Dose: 25 mg Ondansetron HCl (Zofran Injection) 4 mg IVPUSH Q8H PRN PRN Reason: NAUSEA Polyethylene Glycol (Miralax (For Daily Use) -) 17 gm PO DAILY [facility] Warfarin Sodium (Coumadin -) 1 mg PO NOW ONE Stop: 10/05/17 18:16 Warfarin Sodium (Coumadin -) 2.5 mg PO DAILY@1800 [facility] Laboratory Results - last 24 hr 10/05/17 06:00 PT with INR 22.40 H INR 1.98 H Vital Signs Temperature 98 F 10/05/17 05:00 Pulse Rate 72 10/05/17 09:00 Respiratory Rate 20 10/05/17 09:00 Blood Pressure 140/86 10/05/17 09:00 O2 Sat by Pulse Oximetry (%) 96 10/05/17 09:00 CC: constipated `````````````````` skin--NL color; IV site okay eyes--midline lungs--clear heart--Irreg abd--benign neuro--alert; coherent, non toxic looking `````````````````````````````````````` 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 PLAN: on Ertapenem, check renal US; check UA > pATF--rate controlled; cont with BB & a/c; check daily INR and adjust as needed > Htn--Bp in adequate range without CCB & CELINA; will hold said meds for the time being > Constipation--start Miralax ~~~~~~~~~~~~~~~~~ Dr Nicholson Problem List - Problems (1) Urinary tract infection Code(s): N39.0 - URINARY TRACT INFECTION, SITE NOT SPECIFIED Qualifiers: Urinary tract infection type: acute cystitis Hematuria presence: with hematuria Qualified Code(s): N30.01 - Acute cystitis with hematuria (2) Dehydration, moderate Code(s): E86.0 - DEHYDRATION (3) Atrial fibrillation Code(s): I48.91 - UNSPECIFIED ATRIAL FIBRILLATION Qualifiers: Atrial fibrillation type: chronic Qualified Code(s): I48.2 - Chronic atrial fibrillation (4) Hypertension Code(s): I10 - ESSENTIAL (PRIMARY) HYPERTENSION Qualifiers: Hypertension type: essential hypertension Qualified Code(s): I10 - Essential (primary) hypertension
[2017-10-05] MEDS ORDERED: WARFARIN NA 1 MG TABLET (FP) PO ONE (18:15)
[2017-10-05] MEDS: POLYETHYLENE GLYCOL 3350 119 GM BTL PO SCH (20:57)
[2017-10-06 07:31] LABS: INR 1.86 (0.83-1.09)
[2017-10-06] MEDS ORDERED: PT OWN MED DRAWER 7, Y5N ONE (09:13)
[2017-10-06] MEDS: POLYETHYLENE GLYCOL 3350 119 GM BTL PO SCH (09:42)
[2017-10-06] MEDS: ERTAPENEM SODIUM 0.5 GM in SODIUM CHLORIDE 50 ML IVPB SCH (09:42)
[2017-10-06] MEDS: metoPROLOL SUCCINATE 25 MG TAB.SR.24H (FP) PO SCH (09:42)
--- NOTE | 2017-10-06 15:27 | PN ---
Progress Note (short form) - Note Progress Note: ............. medical ....................... Current Medications Ertapenem 0.5 gm/ Sodium (Chloride) 50 mls @ 100 mls/hr IVPB DAILY [facility]; Protocol Last Admin: 10/06/17 09:42 Dose: 100 mls/hr Metoprolol Succinate (Toprol Xl -) 25 mg PO DAILY [facility] Last Admin: 10/06/17 09:42 Dose: 25 mg Ondansetron HCl (Zofran Injection) 4 mg IVPUSH Q8H PRN PRN Reason: NAUSEA Polyethylene Glycol (Miralax (For Daily Use) -) 17 gm PO DAILY [facility] Last Admin: 10/06/17 09:42 Dose: 17 gm Warfarin Sodium (Coumadin -) 4 mg PO DAILY@1800 [facility] Laboratory Results - last 24 hr 10/06/17 06:00 PT with INR 21.00 H INR 1.86 H Vital Signs Temperature 98.1 F 10/06/17 13:46 Pulse Rate 65 10/06/17 13:46 Respiratory Rate 18 10/06/17 13:46 Blood Pressure 129/73 10/06/17 13:46 O2 Sat by Pulse Oximetry (%) 97 10/06/17 10:00 CC: constipated `````````````````` skin--NL color; IV site okay eyes--midline lungs--clear heart--Irreg abd--benign neuro--alert; coherent, non toxic looking `````````````````````````````````````` 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 PLAN: on Ertapenem; will change to Macrobid In AM; (relayed by Dr pagan via Dr casanova) > pATF--rate controlled; cont with BB & a/c; check daily INR and adjust as needed > Htn--Bp in adequate range without CCB & CELINA; will hold said meds for the time being > Hydronephrosis--by renal US; will Urology eval > Constipation--helped with Miralax ~~~~~~~~~~~~~~~~~ Dr Nicholson Problem List - Problems (1) Urinary tract infection Code(s): N39.0 - URINARY TRACT INFECTION, SITE NOT SPECIFIED Qualifiers: Urinary tract infection type: acute cystitis Hematuria presence: with hematuria Qualified Code(s): N30.01 - Acute cystitis with hematuria (2) Dehydration, moderate Code(s): E86.0 - DEHYDRATION (3) Atrial fibrillation Code(s): I48.91 - UNSPECIFIED ATRIAL FIBRILLATION Qualifiers: Atrial fibrillation type: chronic Qualified Code(s): I48.2 - Chronic atrial fibrillation (4) Hypertension Code(s): I10 - ESSENTIAL (PRIMARY) HYPERTENSION Qualifiers: Hypertension type: essential hypertension Qualified Code(s): I10 - Essential (primary) hypertension
--- NOTE | 2017-10-06 15:32 | PN ---
Progress Note (short form) - Note Progress Note: addendum: spoke with Dr Niels Mustafa Urologic issue and advised getting a non contrast CT of Pelvis & abd. ~ Dr Dunne Problem List - Problems (1) Urinary tract infection Code(s): N39.0 - URINARY TRACT INFECTION, SITE NOT SPECIFIED Qualifiers: Urinary tract infection type: acute cystitis Hematuria presence: with hematuria Qualified Code(s): N30.01 - Acute cystitis with hematuria (2) Dehydration, moderate Code(s): E86.0 - DEHYDRATION (3) Atrial fibrillation Code(s): I48.91 - UNSPECIFIED ATRIAL FIBRILLATION Qualifiers: Atrial fibrillation type: chronic Qualified Code(s): I48.2 - Chronic atrial fibrillation (4) Hypertension Code(s): I10 - ESSENTIAL (PRIMARY) HYPERTENSION Qualifiers: Hypertension type: essential hypertension Qualified Code(s): I10 - Essential (primary) hypertension
[2017-10-06] MEDS: WARFARIN NA 2 MG TABLET (UD) PO SCH (17:06)
[2017-10-06] MEDS ORDERED: WARFARIN NA 2.5 MG TABLET (FP) PO SCH (18:00)
[2017-10-06 20:02] LABS: URINE APPEARANCE CLOUDY; URINE BILIRUBIN NEGATIVE (<2.0 mg/dL); URINE COLOR YELLOW; URINE GLUCOSE (UA) NEGATIVE (NEGATIVE); URINE KETONE NEGATIVE (NEGATIVE); URINE NITRITE NEGATIVE (NEGATIVE); URINE PROTEIN NEGATIVE (NEGATIVE); URINE UROBILINOGEN NEGATIVE mg/dL (0.2-1.0)
[2017-10-06 20:05] LABS: URINE LEUK ESTERASE 3+ (NEGATIVE)
[2017-10-06 20:09] LABS: EPI CELLS RARE /HPF (FEW); URINE BACTERIA RARE /hpf (NONE SEEN)
[2017-10-07 07:38] LABS: PROTHROMBIN TIME (PATIENT) 22.6 SEC (9.7-13.0)
[2017-10-07] MEDS ORDERED: PT OWN MED DRAWER 7, Y5N ONE (09:51)
[2017-10-07] MEDS: POLYETHYLENE GLYCOL 3350 119 GM BTL PO SCH (09:53)
[2017-10-07] MEDS: metoPROLOL SUCCINATE 25 MG TAB.SR.24H (FP) PO SCH (09:53)
[2017-10-07] MEDS: ERTAPENEM SODIUM 0.5 GM in SODIUM CHLORIDE 50 ML IVPB SCH (11:07)
--- NOTE | 2017-10-07 16:31 | CON.GU ---
Consult Consult Specialty:: Urology Referred by:: Dr Nicholson Reason for Consultation:: bladder tumor, left hydronephrosis - History of Present Illness Chief Complaint: 87 yo male w hx of bladder tumores. now w possible obstuctive uropathy - History Source History Provided By: Patient, Medical Record - Past Medical History Cardio/Vascular: Yes: AFIB, HTN, Hyperlipdemia, Other (s/p stenting) Pulmonary: Yes: COPD Gastrointestinal: Yes: Diverticulosis, Other (Lt ing hernia) Renal/: Yes: Renal Inusuff (mild), Renal Calculi (Lt side) Musculoskeletal: Yes: Chronic low back pain, Osteoarthritis - Alcohol/Substance Use Hx Alcohol Use: No History of Substance Use: reports: None - Smoking History Smoking history: Former smoker Have you smoked in the past 12 months: No If you are a former smoker, when did you quit?: 1984 - Social History ADL: Independent 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 History of Recent Travel: No Home Medications - Allergies Allergies/Adverse Reactions: Allergies Allergy/AdvReac Type Severity Reaction Status Date / Time No Known Drug Allergies AdvReac Severe Verified 10/01/17 11:03 nystatin [From Bio-Statin] AdvReac Severe Verified 10/01/17 11:04 - Home Medications Home Medications: Ambulatory Orders Amlodipine Besylate [Norvasc] 10 mg PO DAILY 08/03/12 Lisinopril [Prinivil] 40 mg PO DAILY 08/03/12 Cyanocobalamin [Vitamin B12 -] 1,000 mcg PO DAILY 01/08/15 Aspirin [ASA -] 81 mg PO DAILY 10/02/17 Metoprolol Succinate [Toprol Xl -] 50 mg PO DAILY 10/02/17 Warfarin Sodium [Coumadin] 2.5 mg PO DAILY 10/02/17 Physical Exam- Vital Signs: Vital Signs Temperature 98.3 F 10/07/17 14:49 Pulse Rate 67 10/07/17 14:49 Respiratory Rate 18 10/07/17 14:49 Blood Pressure 130/69 10/07/17 14:49 O2 Sat by Pulse Oximetry (%) 95 10/07/17 09:00 Labs: CBC, BMP 10/03/17 07:30 10/04/17 06:15 Imaging - Results Cat Scan: Pending Ultrasound: Report Reviewed Problem List - Problems (1) Hydronephrosis due to obstruction of bladder Assessment/Plan: Left hydronephrosis CT performed pending image and report hx Bladder tumor will follow Follow residual urine Code(s): N13.30 - UNSPECIFIED HYDRONEPHROSIS; N32.0 - BLADDER-NECK OBSTRUCTION (2) Atrial fibrillation, new onset Code(s): I48.91 - UNSPECIFIED ATRIAL FIBRILLATION
--- NOTE | 2017-10-07 16:59 | PN ---
Progress Note (short form) - Note Progress Note: ############### medical note ############# Current Medications Ertapenem 0.5 gm/ Sodium (Chloride) 50 mls @ 100 mls/hr IVPB DAILY [facility]; Protocol Last Admin: 10/07/17 11:07 Dose: 100 mls/hr Metoprolol Succinate (Toprol Xl -) 25 mg PO DAILY [facility] Last Admin: 10/07/17 09:53 Dose: 25 mg Ondansetron HCl (Zofran Injection) 4 mg IVPUSH Q8H PRN PRN Reason: NAUSEA Polyethylene Glycol (Miralax (For Daily Use) -) 17 gm PO DAILY [facility] Last Admin: 10/07/17 09:53 Dose: Not Given Warfarin Sodium (Coumadin -) 4 mg PO DAILY@1800 [facility] Last Admin: 10/06/17 17:06 Dose: 4 mg Laboratory Results - last 24 hr 10/06/17 10/07/17 18:00 06:15 PT with INR 22.60 H INR 2.00 H Urine Color Yellow Urine Appearance Cloudy Urine pH 5.0 Ur Specific [place] 1.012 Urine Protein Negative Urine Glucose (UA) Negative Urine Ketones Negative Urine Blood 2+ H Urine Nitrite Negative Urine Bilirubin Negative Urine Urobilinogen Negative Ur Leukocyte Esterase 3+ H Urine WBC (Auto) 449 Urine RBC (Auto) 13 Ur Epithelial Cells Rare Urine Bacteria Rare Vital Signs Temperature 98.3 F 10/07/17 14:49 Pulse Rate 67 10/07/17 14:49 Respiratory Rate 18 10/07/17 14:49 Blood Pressure 130/69 10/07/17 14:49 O2 Sat by Pulse Oximetry (%) 95 10/07/17 09:00 CC: no new issues `````````````````` skin--NL color; IV site okay eyes--midline lungs--clear heart--Irreg abd--benign neuro--alert; coherent, non toxic looking `````````````````````````````````````` 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 PLAN: on Ertapenem; will change to Macrobid In AM; (relayed by Dr pagan via Dr casanova); may need C&S > pATF--rate controlled; cont with BB & a/c; check daily INR and adjust as needed > Htn--Bp in adequate range without CCB & CELINA; will hold said meds for the time being > Hydronephrosis--by renal US; await result of CT report > Constipation--helped with Miralax ~~~~~~~~~~~~~~~~~ Dr Nicholson Problem List - Problems (1) Urinary tract infection Code(s): N39.0 - URINARY TRACT INFECTION, SITE NOT SPECIFIED Qualifiers: Urinary tract infection type: acute cystitis Hematuria presence: with hematuria Qualified Code(s): N30.01 - Acute cystitis with hematuria (2) Dehydration, moderate Code(s): E86.0 - DEHYDRATION (3) Atrial fibrillation Code(s): I48.91 - UNSPECIFIED ATRIAL FIBRILLATION Qualifiers: Atrial fibrillation type: chronic Qualified Code(s): I48.2 - Chronic atrial fibrillation (4) Hypertension Code(s): I10 - ESSENTIAL (PRIMARY) HYPERTENSION Qualifiers: Hypertension type: essential hypertension Qualified Code(s): I10 - Essential (primary) hypertension
[2017-10-07] MEDS: WARFARIN NA 2 MG TABLET (UD) PO SCH (17:16)
[2017-10-07 19:20] LABS: INR 2.05 (0.83-1.09); PROTHROMBIN TIME (PATIENT) 23.2 SEC (9.7-13.0)
[2017-10-08] MEDS ORDERED: NITROFURANTOIN MACROCRYSTAL 50 MG CAPSULE (FP) PO SCH ×2 (06:00→18:00)
[2017-10-08] MEDS: metoPROLOL SUCCINATE 25 MG TAB.SR.24H (FP) PO SCH (10:26)
[2017-10-08] MEDS: POLYETHYLENE GLYCOL 3350 119 GM BTL PO SCH (10:26)
[2017-10-08] MEDS: ERTAPENEM SODIUM 0.5 GM in SODIUM CHLORIDE 50 ML IVPB SCH (17:47)
[2017-10-08] MEDS ORDERED: PHYTONADIONE 10 MG/1 ML AMP IM ONE (18:07)
--- NOTE | 2017-10-08 18:09 | PN ---
Progress Note (short form) - Note Progress Note: CT shows obstructing 1cm left UPJ stone pt denies any flank pain currently afebrile on Ertapenem for resistant ESBL UTI will plan for cysto/stent placement tomorrow if INR below 2-because if stent doesnt pass, pt will subsequently require left nephrostomy tube placement Dr Nicholson to administer Vit K this evening will check INR in AM
--- NOTE | 2017-10-08 18:17 | PN ---
Progress Note (short form) - Note Progress Note: >>>>>>>>>>>>> medical <<<<<<<<<<<<< Current Medications Ertapenem 0.5 gm/ Sodium (Chloride) 50 mls @ 100 mls/hr IVPB DAILY [facility]; Protocol Last Admin: 10/08/17 17:47 Dose: 100 mls/hr Metoprolol Succinate (Toprol Xl -) 25 mg PO DAILY [facility] Last Admin: 10/08/17 10:26 Dose: 25 mg Ondansetron HCl (Zofran Injection) 4 mg IVPUSH Q8H PRN PRN Reason: NAUSEA Phytonadione (Aqua Mephyton Injection -) 5 mg IM ONCE ONE Stop: 10/08/17 18:08 Polyethylene Glycol (Miralax (For Daily Use) -) 17 gm PO DAILY [facility] Last Admin: 10/08/17 10:26 Dose: Not Given Laboratory Results - last 24 hr 10/07/17 18:00 PT with INR 23.20 H INR 2.05 H Vital Signs Temperature 98.1 F 10/08/17 14:56 Pulse Rate 68 10/08/17 14:56 Respiratory Rate 18 10/08/17 14:56 Blood Pressure 130/70 10/08/17 14:56 O2 Sat by Pulse Oximetry (%) 97 10/08/17 09:00 CC: no new issues ```````````````````` skin--NL color heart--Irreg lungs--clear abd--benign neuro--alert, coherent no focal deficits ```````````````````````````````````````` Summ > Hydronephrosis--Lt side; 2nd stone at UPJ causing obstruction. Discussed with Dr Bowser. PLAN: for stent placement > ATF--rate controlled; on a/c; will have to hold; give Im Vit K > Htn--BP Okay on BB alone > UTI--ESBL Uti; on Ertapenem; C& S retaken, but will need intervention to relieve LT urinary pelvic obstruction ~~~~~~~~~~~~~~~~~~~~ Dr Commentucci Problem List - Problems (1) Urinary tract infection Code(s): N39.0 - URINARY TRACT INFECTION, SITE NOT SPECIFIED Qualifiers: Urinary tract infection type: acute cystitis Hematuria presence: with hematuria Qualified Code(s): N30.01 - Acute cystitis with hematuria (2) Dehydration, moderate Code(s): E86.0 - DEHYDRATION (3) Atrial fibrillation Code(s): I48.91 - UNSPECIFIED ATRIAL FIBRILLATION Qualifiers: Atrial fibrillation type: chronic Qualified Code(s): I48.2 - Chronic atrial fibrillation (4) Hypertension Code(s): I10 - ESSENTIAL (PRIMARY) HYPERTENSION Qualifiers: Hypertension type: essential hypertension Qualified Code(s): I10 - Essential (primary) hypertension
[2017-10-08] MEDS: WARFARIN NA 2 MG TABLET (UD) PO SCH (18:27)
[2017-10-08 19:15] LABS: INR 2.13 (0.83-1.09); PROTHROMBIN TIME (PATIENT) 24.1 SEC (9.7-13.0)
[2017-10-09 07:06] LABS: HEMATOCRIT 35.3 % (35.4-49); HEMOGLOBIN 11.7 GM/dL (11.7-16.9); MCH 28.4 pg (25.7-33.7); MCHC 33.1 g/dl (32.0-35.9); MEAN CELL VOLUME 85.7 fl (80-96); MEAN PLT VOLUME 7.9 fl (7.5-11.1); PLATELET COUNT 267 K/MM3 (134-434); RBC 4.11 M/mm3 (4.00-5.60)
[2017-10-09 07:33] LABS: ANION GAP 6 MMOL/L (8-16); BLOOD UREA NITROGEN 25 mg/dL (7-18); CALCIUM 8.5 mg/dL (8.5-10.1); CHLORIDE 107 mmol/L (98-107); CO2 29 mmol/L (21-32); CREATININE 0.9 mg/dL (0.7-1.3); GLUCOSE,RANDOM 86 mg/dL (74-106); POTASSIUM 4.8 mmol/L (3.5-5.1); SODIUM 142 mmol/L (136-145)
[2017-10-09 07:43] LABS: INR 2.1 (0.83-1.09); PROTHROMBIN TIME (PATIENT) 23.7 SEC (9.7-13.0)
[2017-10-09] MEDS: POLYETHYLENE GLYCOL 3350 119 GM BTL PO SCH (10:51)
[2017-10-09] MEDS: ERTAPENEM SODIUM 0.5 GM in SODIUM CHLORIDE 50 ML IVPB SCH (10:59)
[2017-10-09] MEDS: metoPROLOL SUCCINATE 25 MG TAB.SR.24H (FP) PO SCH (10:59)
[2017-10-09] MEDS ORDERED: LACTATED RINGERS SOLUTION 1,000 ML IV SCH ×2 (12:00→14:18)
[2017-10-09] MEDS ORDERED: LIDOCAINE HCL/PF 2% SDV 5ML VIAL ONE (13:02)
[2017-10-09] MEDS ORDERED: PROPOFOL 20 ML ONE (13:02)
--- NOTE | 2017-10-09 13:37 | OP ---
Operative Note - Note: Operative Date: 10/09/17 Pre-Operative Diagnosis: obstructing left prox ureteral stone Operation: cysto/left retrograde pyelogram/left ureteral stent placement Findings: 1cm LUPJ stone Post-Operative Diagnosis: Same as Pre-op Surgeon: Nik Bowser Anesthesia: General Estimated Blood Loss (mls): 0 Drains & Tubes with Location: 7fr, 24cm stent Operative Report Dictated: Yes
[2017-10-09] MEDS ORDERED: ONDANSETRON 4 MG/2 ML VIAL IVPUSH PRN (14:18)
--- NOTE | 2017-10-09 14:23 | OP ---
DATE OF OPERATION: 10/09/2017 PREOPERATIVE DIAGNOSIS: Obstructing left ureteropelvic junction stone. POSTOPERATIVE DIAGNOSIS: Obstructing left ureteropelvic junction stone. PROCEDURE: Cystoscopy, retrograde pyelogram, left ureteral stent placement. SURGEON: Boirs Silver MD INDICATIONS: Patient is an 87-year-old male admitted with ESBL, E. coli, UTI, resistant, noted to have mild left hydronephrosis on ultrasound. CT scan confirmed the hydronephrosis secondary to a 1-cm left UPJ stone. In light of the resistant bug with UTI, he was taken to the OR for a cystoscopy stent placement in an effort to expedite resolution of the UTI. DESCRIPTION OF PROCEDURE: After informed consent was obtained, patient was taken to the OR, placed supine on the operating table. After cardiac monitoring administered and general anesthesia established, he was prepped and draped in dorsal lithotomy position. The cystoscope was inserted into the urethra without difficulty. Anterior urethra was normal. Prostatic urethra was visualized with some calcifications from prior radiation therapy, prior seed placement in the high bladder neck. The bladder was visualized. No tumors or stones noted in the bladder. Attention was turned to left ureteral orifice, was intubated with ureteral catheter. Contrast was injected for retrograde pyelogram. There was hydroureteronephrosis. There was hydronephrosis at the UPJ level where a stone was seen. Guidewire was negotiated beyond the stone. Over the guidewire, 7-[place] 24-cm double pigtail stent was then advanced in the monorail fashion. Fluoroscopy confirmed the stent to be in good position. Patient was awoken from anesthesia and transferred to the recovery room in stable condition. There were no complications. Estimated blood loss was 0. BORIS SILVER M.D. [id number]
[2017-10-09] MEDS ORDERED: DEXTROSE 5%-0.45% SALINE 500 ML IV ONE (15:00)
--- NOTE | 2017-10-09 15:09 | PN ---
Progress Note (short form) - Note Progress Note: .................. medical ............... Current Medications Ertapenem 0.5 gm/ Sodium (Chloride) 50 mls @ 100 mls/hr IVPB DAILY [facility]; Protocol Dextrose/Sodium Chloride (D5-1/2ns -) 1,000 mls @ 42 mls/hr IV ASDIR [facility] Metoprolol Succinate (Toprol Xl -) 25 mg PO DAILY [facility] Ondansetron HCl (Zofran Injection) 4 mg IVPUSH Q8H PRN PRN Reason: NAUSEA Polyethylene Glycol (Miralax (For Daily Use) -) 17 gm PO DAILY [facility] Warfarin Sodium (Coumadin -) 4 mg PO ONCE@1800 ONE Stop: 10/09/17 18:01 Laboratory Results - last 24 hr 10/08/17 10/09/17 10/09/17 17:30 06:16 06:16 WBC 9.0 RBC 4.11 Hgb 11.7 Hct 35.3 L MCV 85.7 MCH 28.4 MCHC 33.1 RDW 14.0 Plt Count 267 D MPV 7.9 PT with INR 24.10 H 23.70 H INR 2.13 H 2.10 H Sodium Potassium Chloride Carbon Dioxide Anion Gap BUN Creatinine Creat Clearance w eGFR Random Glucose Calcium Blood Type Antibody Screen 10/09/17 10/09/17 06:16 11:00 WBC RBC Hgb Hct MCV MCH MCHC RDW Plt Count MPV PT with INR INR Sodium 142 Potassium 4.8 Chloride 107 Carbon Dioxide 29 Anion Gap 6 L BUN 25 H Creatinine 0.9 Creat Clearance w eGFR > 60 Random Glucose 86 Calcium 8.5 Blood Type O NEGATIVE Antibody Screen Negative Vital Signs Temperature 98.1 F 10/09/17 13:34 Pulse Rate 64 10/09/17 13:34 Respiratory Rate 17 10/09/17 13:34 Blood Pressure 144/83 10/09/17 13:34 O2 Sat by Pulse Oximetry (%) 97 10/09/17 13:34 CC: no new issues ```````````````````` skin--NL color heart--Irreg lungs--clear abd--benign neuro--alert, coherent no focal deficits ```````````````````````````````````````` Summ > Hydronephrosis--Lt side; 2nd stone at UPJ causing obstruction; now s/p ureteral stent placement. > ATF--rate controlled; on a/c, check AM Inr > Htn--Okay on BB alone > UTI--ESBL Uti; on Ertapenem; C& S now shows negative growth. will plan for d/c ~~~~~~~~~~~~~~~~~~~~ Dr Nicholson Problem List - Problems (1) Urinary tract infection Code(s): N39.0 - URINARY TRACT INFECTION, SITE NOT SPECIFIED Qualifiers: Urinary tract infection type: acute cystitis Hematuria presence: with hematuria Qualified Code(s): N30.01 - Acute cystitis with hematuria (2) Dehydration, moderate Code(s): E86.0 - DEHYDRATION (3) Atrial fibrillation Code(s): I48.91 - UNSPECIFIED ATRIAL FIBRILLATION Qualifiers: Atrial fibrillation type: chronic Qualified Code(s): I48.2 - Chronic atrial fibrillation (4) Hypertension Code(s): I10 - ESSENTIAL (PRIMARY) HYPERTENSION Qualifiers: Hypertension type: essential hypertension Qualified Code(s): I10 - Essential (primary) hypertension
[2017-10-09] MEDS ORDERED: WARFARIN NA 2 MG TABLET (UD) PO ONE (18:00)
[2017-10-10 08:09] LABS: INR 1.58 (0.83-1.09); PROTHROMBIN TIME (PATIENT) 17.8 SEC (9.7-13.0)
[2017-10-10] MEDS ORDERED: ERTAPENEM SODIUM 0.5 GM in SODIUM CHLORIDE 50 ML IVPB SCH (10:00)
[2017-10-10] MEDS ORDERED: POLYETHYLENE GLYCOL 3350 119 GM BTL PO SCH (10:00)
[2017-10-10] MEDS ORDERED: metoPROLOL SUCCINATE 25 MG TAB.SR.24H (FP) PO SCH (10:00)
[2017-10-10] MEDS ORDERED: PT OWN MED DRAWER 7, Y5N ONE (11:16)
[2017-10-10 11:35] VITALS: BP 112/74; PULSE 67; TEMP 98
[2017-10-10] MEDS ORDERED: WARFARIN NA 7.5 MG TABLET (FP) PO ONE (11:41)
--- NOTE | 2017-10-10 12:00 | DS ---
Physical Examination Vital Signs: Vital Signs Temperature 98 F 10/10/17 11:34 Pulse Rate 67 10/10/17 11:34 Respiratory Rate 18 10/10/17 11:34 Blood Pressure 112/74 10/10/17 11:34 O2 Sat by Pulse Oximetry (%) 97 10/10/17 09:00 Constitutional: Yes: Well Nourished, No Distress, Calm Eyes: Yes: Conjunctiva Clear Cardiovascular: Yes: Pulse Irregular Respiratory: Yes: WNL Gastrointestinal: Yes: Soft Edema: No Neurological: Yes: Alert, Oriented ...Motor Strength: WNL (gait intact needs assistive device) Labs: CBC, BMP 10/09/17 06:16 10/09/17 06:16 Discharge Summary Reason For Visit: URINARY TRACT INFECTION Current Active Problems [place] (acute kidney injury) (Acute) Atrial fibrillation Dehydration, moderate (Acute) Hydronephrosis due to obstruction from stone Urinary tract infection (Acute) HTN Hospital Course: admitted for malaise; fatigue; found to have UTI and dehydration. Was given fluids and IV Abs. Found to have ESBL E.coli, and seen by ID; changed to Catie. Imaging revelaed a Lt hydro and Ct showed the presence of a LT UPJ stone obstructing the renal pelvis. He was seen by Urology; stent placed and obstruction releived. The stone was not dislodged. he remained stable and afebrile through his stay;. The final urine culture showed no growth. He is to f /u with urology in 2 weeks for further tx. Condition: Stable - Instructions Diet, Activity, Other Instructions: low salt diet check BP at home f/u with Dr Nicholson on Thursday Referrals: Aram Nicholson MD [Primary Care Provider] - Disposition: [facility]/HOME HEALTH CARE - Home Medications Comprehensive Discharge Medication List: Ambulatory Orders Cyanocobalamin [Vitamin B12 -] 1,000 mcg PO DAILY 01/08/15 Aspirin [ASA -] 81 mg PO DAILY 10/02/17 Metoprolol Succinate [Toprol XL -] 50 mg PO DAILY 10/02/17 Warfarin Sodium [Coumadin] 2.5 mg PO DAILY 10/02/17 Amlodipine Besylate [Norvasc -] 10 mg PO DAILY #0 tab 10/10/17 Lisinopril [Prinivil -] 40 mg PO DAILY #0 tab 10/10/17 Nitrofurantoin Macrocrystal [Nitrofurantoin] 50 mg PO BID 7 Days #14 capsule
[2017-10-10] MEDS ORDERED: WARFARIN NA 5 MG TABLET (UD) PO ONE (12:15)
--- NOTE | 2017-10-10 12:17 | PN ---
Progress Note, Physician Chief Complaint: day #1 s/p cysto with stent under GA - Current Medication List Current Medications: Active Medications Metoprolol Succinate (Toprol Xl -) 25 mg PO DAILY [facility] Last Admin: 10/10/17 11:21 Dose: 25 mg Ondansetron HCl (Zofran Injection) 4 mg IVPUSH Q8H PRN PRN Reason: NAUSEA Polyethylene Glycol (Miralax (For Daily Use) -) 17 gm PO DAILY [facility] Last Admin: 10/10/17 11:21 Dose: Not Given - Objective Vital Signs: Vital Signs Temperature 98 F 10/10/17 11:34 Pulse Rate 67 10/10/17 11:34 Respiratory Rate 18 10/10/17 11:34 Blood Pressure 112/74 10/10/17 11:34 O2 Sat by Pulse Oximetry (%) 97 10/10/17 09:00 Labs: CBC, BMP 10/09/17 06:16 10/09/17 06:16 INR, PTT INR 1.58 (0.83-1.09) H 10/10/17 06:00 Assessment/Plan Doing well s/p GA for cysto. To be d/c'ed today
--- NOTE | 2017-10-10 12:24 | PN ---
Progress Note (short form) - Note Progress Note: s/p cystoo stent placement yesterday feels well no hematuria/dysuria to be discharged today outpt f/u for lithotripsy
== END 2017-10-10 14:36 | disposition home health service (06) | DRG 694 ==
LOC: JER 10:45 → JERBED 15:08 → J5S 19:26 → J7W 10-03 13:55 → OBSVTOIN 10-03 14:49
PROVIDERS: ADMIT Internal Medicine; ATTEND Internal Medicine
PROC: 0T778DZ Dilation of Left Ureter with Intraluminal Device, Via Natural or Artificial Opening Endoscopic (ICD-10-PCS; principal; 2017-10-09 12:00)
PROC: BT1FZZZ Fluoroscopy of Left Kidney, Ureter and Bladder (ICD-10-PCS; 2017-10-09 12:00)
DX: N13.2 Hydronephrosis with renal and ureteral calculous obstruction (principal); N17.9 Acute kidney failure, unspecified; Z85.46 Personal history of malignant neoplasm of prostate; B96.29 Other Escherichia coli [E. coli] as the cause of diseases classified elsewhere; E86.0 Dehydration; I10 Essential (primary) hypertension; N39.0 Urinary tract infection, site not specified; Z16.12 Extended spectrum beta lactamase (ESBL) resistance; I48.0 Paroxysmal atrial fibrillation; Z95.1 Presence of aortocoronary bypass graft; Z79.01 Long term (current) use of anticoagulants; I25.10 Atherosclerotic heart disease of native coronary artery without angina pectoris; Z87.891 Personal history of nicotine dependence; E78.5 Hyperlipidemia, unspecified; J44.9 Chronic obstructive pulmonary disease, unspecified; M19.90 Unspecified osteoarthritis, unspecified site; M54.5 Low back pain; K57.30 Diverticulosis of large intestine without perforation or abscess without bleeding; Z95.5 Presence of coronary angioplasty implant and graft; R35.0 Frequency of micturition; K59.00 Constipation, unspecified
CPT/HCPCS: 36415; 71046-TC-FY; 74176-TC; 76000-TC-FY; 76775-TC; 80048; 80053; 81003; 81015; 84484; 85025; 85027; 85610; 85730; 86850; 86900; 86901; 87086; 87186; 93005; 93010; 94760; 97116-GP; 97162-GP; 99285-25; G0378; J7030

== ENCOUNTER 2017-10-30 05:50 | Day surgery (SDC) | payer OTHER, MEDICARE ==
[2017-10-29 13:34] VITALS: BMI 20.2
[2017-10-30 07:37] LABS: INR 1.19 (0.83-1.09); PROTHROMBIN TIME (PATIENT) 13.4 SEC (9.7-13.0)
[2017-10-30] MEDS ORDERED: PROPOFOL 20 ML ONE (07:42)
[2017-10-30] MEDS ORDERED: VANCOMYCIN 1,000 MG VIAL (RESTRICTED TO ID ONLY) ONE (07:42)
[2017-10-30] MEDS ORDERED: LIDOCAINE HCL/PF 2% SDV 5ML VIAL ONE (07:42)
[2017-10-30] MEDS ORDERED: VANCOMYCIN 1,000 MG VIAL (RESTRICTED TO ID ONLY) IVPB ONE (07:48)
[2017-10-30] MEDS ORDERED: FUROSEMIDE 40 MG/4 ML INJECTABLE VIAL ONE (08:16)
[2017-10-30] MEDS ORDERED: oxyCODONE HCL 5 MG TABLET PO PRN (08:30)
[2017-10-30] MEDS ORDERED: DEXTROSE 5%-0.45% SALINE 1,000 ML IV SCH (08:30)
--- NOTE | 2017-10-30 08:33 | OP ---
Operative Note - Note: Operative Date: 10/30/17 Pre-Operative Diagnosis: Left UPJ stone Operation: cysto/laser litho/stent Findings: 1cm stone left upj Post-Operative Diagnosis: Same as Pre-op Surgeon: Nik Bowser Anesthesia: General Specimens Removed: stone frags Drains & Tubes with Location: 7fr, 24cm stent Operative Report Dictated: Yes
[2017-10-30] MEDS ORDERED: ACETAMINOPHEN 325 MG TABLET (FP) PO PRN (08:37)
[2017-10-30] MEDS ORDERED: ONDANSETRON 4 MG/2 ML VIAL IVPUSH PRN (08:37)
[2017-10-30] MEDS ORDERED: LACTATED RINGERS SOLUTION 1,000 ML IV SCH (08:45)
--- NOTE | 2017-10-30 09:27 | OP ---
DATE OF OPERATION: 10/30/2017 PREOPERATIVE DIAGNOSIS: A 1-cm left ureteropelvic junction stone. POSTOPERATIVE DIAGNOSIS: A 1-cm left ureteropelvic junction stone, plus bladder stone. PROCEDURE: Cystoscopy, stent removal, ureteroscopy, laser lithotripsy, stent replacement, and laser lithotripsy of bladder stone. SURGEON: Boris Silver MD INDICATIONS: Patient is an 87-year-old male who had stent placement 2 weeks ago for obstructing left UPJ stone 1 cm in size. He was taken to the OR for lithotripsy today. DESCRIPTION OF PROCEDURE: The patient was taken to the OR, placed supine on the OR table. After cardiac monitoring administered and general anesthesia established, he was prepped and draped in dorsal lithotomy position. He was given 1 g of vancomycin. At this point, the rigid cystoscope was introduced without difficulty. Anterior urethra was normal. Prostatic urethra was visually occlusive. The bladder was then visualized. An approximately 1-cm bladder stone was noted, and using the 365 micron laser fiber, the stone was pulverized and sent to Pathology for analysis. With the bladder stone now removed, attention was turned to the ureteral stone. A guidewire was advanced along into the left ureteral orifice alongside the ureteral stent into left renal pelvis. The existing stent was then removed, and a second guidewire was advanced through the stent. Then, the stent was removed. Over the second guidewire, a flexible ureteroscope was advanced to the UPJ where a stone was seen obstructing the ureter. Using the 365 micron laser fiber, the stone was pulverized to fine dust in 1-to-2-mm fragments. Inspection of the collecting system revealed no other residual stone fragments. Ureteroscope was then removed, and a 7-Bengali 24-cm double pigtail stent was then advanced in a monorail fashion. Fluoroscopy confirmed the stent to be in good position. A retrograde pyelogram had been performed just prior to the stent placement, so again, confirming the stent placement. Cystoscope was then removed. Patient was then awoke from anesthesia and transferred to recovery room in stable condition. There were no complications. Estimated blood loss was 0. BORIS SILVER M.D. [id number]
[2017-10-30 09:31] VITALS: TEMP 97.7
[2017-10-30 10:36] VITALS: BP 145/80; PULSE 76
--- NOTE | 2017-11-02 17:18 | PATH ---
Surgical Pathology Report Patient Name: ASHLI RICHARDSON Med. Rec. #: [id number] /Age/Gender: 1930 (Age: 87) / M Account: [id number] Location: [facility] Taken: 10/30/2017 Received: 10/30/2017 Reported: 11/02/2017 Physicians: Nik Bowser M.D. Specimen(s) Received A: OLD STENT B: URETERAL STONE Clinical History Left ureteral stone Final Diagnosis A. URETERAL STENT, OLD, REMOVAL: URETERAL STENT. MACROSCOPIC DIAGNOSIS. B. URETERAL STONE, LEFT, LASER LITHOTRIPSY: URETEROLITHIASIS. MACROSCOPIC DIAGNOSIS. Electronically Signed Hanna Nunn M.D. Gross Description A. Received fresh labeled "old stent," is a 34.5 cm in length blue-green, coiled portion of tubing, consistent with a ureteral stent. No soft tissue is present. No sections are submitted, gross only. B. Received fresh labeled "ureteral stone," is a 0.7 x 0.5 x 0.2 cm black, irregular calculus which is sent for chemical analysis. DL/10/30/2017 saudi10/30/2017
[2017-11-05 14:17] LABS: CA OXALATE MONOHYDR. 94 % (.)
== END 2017-10-30 10:50 | disposition home or self-care (01) ==
LOC: JASU-SURG 05:50
PROVIDERS: ATTEND Urology
PROC: 0TF78ZZ Fragmentation in Left Ureter, Via Natural or Artificial Opening Endoscopic (ICD-10-PCS; principal; 2017-10-30 07:30)
PROC: 0T778DZ Dilation of Left Ureter with Intraluminal Device, Via Natural or Artificial Opening Endoscopic (ICD-10-PCS; 2017-10-30 07:30)
PROC: 0TCB8ZZ Extirpation of Matter from Bladder, Via Natural or Artificial Opening Endoscopic (ICD-10-PCS; 2017-10-30 07:30)
DX: N20.1 Calculus of ureter (principal); N21.0 Calculus in bladder
CPT/HCPCS: 36415; 76000-TC-FY; 82360; 85610; 88300-TC; 94760

== ENCOUNTER 2020-02-14 12:45 | Inpatient (IN) | payer OTHER, MEDICARE ==
[2020-02-14 13:14] VITALS: BMI 23.0
[2020-02-14] MEDS ORDERED: SODIUM CHLORIDE 0.9% 500 ML INFUS.BAG IV ONE ×2 (14:14→16:30)
[2020-02-14 14:48] LABS: BASO % 0.1 % (0-2.0); LYMPH % 7.3 % (8-40); MCH 30.6 pg (25.7-33.7); MCHC 34.8 g/dl (32.0-35.9); MEAN CELL VOLUME 87.8 fl (80-96); MONO % 9.3 % (3.8-10.2); NEUT % 83.3 % (42.8-82.8); PLATELET COUNT 104 K/MM3 (134-434); RBC 4.89 M/mm3 (4.00-5.60); RDW 13.4 % (11.9-15.9); WHITE BLOOD COUNT 4.9 K/mm3 (4.0-10.0)
[2020-02-14 15:15] LABS: POTASSIUM 3.7 mmol/L (3.5-5.1)
[2020-02-14 15:18] LABS: ALBUMIN 3.3 g/dl (3.4-5.0); BLOOD UREA NITROGEN 20.9 mg/dL (7-18)
[2020-02-14 15:21] LABS: CREATININE 0.9 mg/dL (0.55-1.3)
[2020-02-14 15:22] LABS: BILIRUBIN,TOTAL 0.8 mg/dL (0.2-1); TOT PROT 6.9 g/dl (6.4-8.2)
[2020-02-14] MEDS ORDERED: ALBUTEROL SO4 0.083% IH SOL 2.5 MG/3 ML VIAL.NEB. NEB PRN (18:35)
[2020-02-14] MEDS ORDERED: ALBUTEROL SO4 HFA INHALER IH PRN (19:02)
[2020-02-14] MEDS: DEXTROSE 5%-0.45% SALINE 1,000 ML IV SCH (19:16)
[2020-02-14] MEDS: AZITHROMYCIN IVPB 250 MG in DEXTROSE 5%-WATER - 250 ML IVPB SCH (20:41)
[2020-02-14] MEDS ORDERED: FAMOTIDINE 20 MG TABLET ONE (22:12)
[2020-02-14] MEDS: FAMOTIDINE 20 MG TABLET PO SCH (22:14)
[2020-02-15 07:24] LABS: HEMATOCRIT 40.2 % (35.4-49); MCH 30.6 pg (25.7-33.7); MCHC 34.8 g/dl (32.0-35.9); MEAN CELL VOLUME 87.9 fl (80-96); MEAN PLT VOLUME 8.7 fl (7.5-11.1); PLATELET COUNT 108 K/MM3 (134-434); RBC 4.58 M/mm3 (4.00-5.60); RDW 13.4 % (11.9-15.9); WHITE BLOOD COUNT 5.1 K/mm3 (4.0-10.0)
[2020-02-15 07:28] LABS: INR 2.02 (0.83-1.09); PROTHROMBIN TIME (PATIENT) 24.4 SEC (9.7-13.0)
[2020-02-15 07:34] LABS: POTASSIUM 3.3 mmol/L (3.5-5.1)
[2020-02-15 07:37] LABS: BLOOD UREA NITROGEN 16.1 mg/dL (7-18)
[2020-02-15 07:40] LABS: CREATININE 0.7 mg/dL (0.55-1.3)
[2020-02-15 07:56] LABS: CALCIUM 7.3 mg/dL (8.5-10.1)
[2020-02-15] MEDS ORDERED: metoPROLOL SUCCINATE 25 MG TAB.SR.24H (FP) ONE (10:30)
[2020-02-15] MEDS ORDERED: FAMOTIDINE 20 MG TABLET ONE (10:30)
[2020-02-15] MEDS ORDERED: AZITHROMYCIN IVPB 500 MG/250 ML BAG IVPB ONE (10:31)
[2020-02-15] MEDS: FAMOTIDINE 20 MG TABLET PO SCH ×2 (10:35→22:35)
[2020-02-15] MEDS: metoPROLOL SUCCINATE 25 MG TAB.SR.24H (FP) PO SCH (10:36)
[2020-02-15] MEDS: AZITHROMYCIN IVPB 250 MG in DEXTROSE 5%-WATER - 250 ML IVPB SCH (10:36)
[2020-02-15] MEDS ORDERED: POTASSIUM CHLORIDE TABS 20 MEQ TABLET.ER (FP) PO ONE (16:27)
[2020-02-15] MEDS: DEXTROSE 5%-0.45% SALINE 1,000 ML IV SCH (18:23)
[2020-02-15] MEDS ORDERED: WARFARIN NA 2 MG TABLET PO SCH (18:30)
[2020-02-15] MEDS ORDERED: ACETAMINOPHEN 1000 MG/100 ML VIAL (NON FORMULARY) IVPB ONE (20:39)
[2020-02-15] MEDS ORDERED: SODIUM CHLORIDE 500 ML IV STA (20:48)
[2020-02-15 21:46] LABS: BASO % 0.1 % (0-2.0); HEMATOCRIT 44.4 % (35.4-49); HEMOGLOBIN 15.1 GM/dL (11.7-16.9); LYMPH % 4.7 % (8-40); MCH 30.5 pg (25.7-33.7); MEAN CELL VOLUME 89.7 fl (80-96); MEAN PLT VOLUME 9.4 fl (7.5-11.1); NEUT % 89.2 % (42.8-82.8); PLATELET COUNT 147 K/MM3 (134-434); RBC 4.95 M/mm3 (4.00-5.60); RDW 13.4 % (11.9-15.9); WHITE BLOOD COUNT 10.7 K/mm3 (4.0-10.0)
[2020-02-15 21:53] LABS: INR 2.14 (0.83-1.09); PROTHROMBIN TIME (PATIENT) 25.3 SEC (9.7-13.0)
[2020-02-15 22:03] LABS: POTASSIUM 3.7 mmol/L (3.5-5.1)
[2020-02-15 22:05] LABS: CALCIUM 7.7 mg/dL (8.5-10.1)
[2020-02-15 22:06] LABS: ALBUMIN 2.9 g/dl (3.4-5.0); BLOOD UREA NITROGEN 18.6 mg/dL (7-18)
[2020-02-15 22:11] LABS: TOT PROT 6.4 g/dl (6.4-8.2)
[2020-02-15 22:19] LABS: BILIRUBIN,TOTAL 0.9 mg/dL (0.2-1)
[2020-02-16 08:10] LABS: INR 2.47 (0.83-1.09); PROTHROMBIN TIME (PATIENT) 29.6 SEC (9.7-13.0)
[2020-02-16 08:18] LABS: POTASSIUM 3.6 mmol/L (3.5-5.1)
[2020-02-16 08:21] LABS: CALCIUM 7.4 mg/dL (8.5-10.1)
[2020-02-16 08:22] LABS: BLOOD UREA NITROGEN 17.2 mg/dL (7-18); MAGNESIUM 1.7 mg/dL (1.8-2.4)
[2020-02-16 08:25] LABS: CREATININE 0.8 mg/dL (0.55-1.3)
[2020-02-16] MEDS: AZITHROMYCIN IVPB 250 MG in DEXTROSE 5%-WATER - 250 ML IVPB SCH (10:21)
[2020-02-16] MEDS: metoPROLOL SUCCINATE 25 MG TAB.SR.24H (FP) PO SCH (10:21)
[2020-02-16] MEDS: FAMOTIDINE 20 MG TABLET PO SCH ×2 (10:21→22:02)
[2020-02-16] MEDS: WARFARIN NA 3 MG TABLET PO SCH (17:35)
[2020-02-16 17:54] LABS: EPI CELLS 25 /uL (0-25.1); HYALINE CASTS 6 /uL (0-3.1); PH,URINE 5.5 (5.0-8.0); URINE APPEARANCE CLEAR; URINE BACTERIA 33 /uL (0-1359); URINE BILIRUBIN NEGATIVE (NEGATIVE); URINE COLOR DK YELLOW; URINE GLUCOSE (UA) NEGATIVE (NEGATIVE); URINE KETONE NEGATIVE (NEGATIVE); URINE LEUK ESTERASE NEGATIVE (NEGATIVE); URINE NITRITE NEGATIVE (NEGATIVE); URINE PROTEIN 2+ (NEGATIVE); URINE RBC 58 /uL (0-23.9); URINE WBC 20 /uL (0-25.8)
[2020-02-16] MEDS ORDERED: REMDESIVIR 200 MG in SODIUM CHLORIDE 210 ML IVPB ONE (18:00)
[2020-02-16] MEDS: MAGNESIUM OXIDE 400 MG TABLET (FP) PO SCH (22:02)
[2020-02-17] MEDS: DEXTROSE 5%-0.45% SALINE 1,000 ML IV SCH ×3 (04:00→22:12)
[2020-02-17 08:04] LABS: HEMOGLOBIN 14.7 GM/dL (11.7-16.9); MCH 31.1 pg (25.7-33.7); MCHC 35.8 g/dl (32.0-35.9); MEAN CELL VOLUME 86.8 fl (80-96); MEAN PLT VOLUME 8.5 fl (7.5-11.1); PLATELET COUNT 149 K/MM3 (134-434); RBC 4.73 M/mm3 (4.00-5.60); RDW 13.5 % (11.9-15.9)
[2020-02-17 08:09] LABS: PROTHROMBIN TIME (PATIENT) 53.2 SEC (9.7-13.0)
[2020-02-17 08:49] LABS: POTASSIUM 3.3 mmol/L (3.5-5.1)
[2020-02-17 08:50] LABS: BLOOD UREA NITROGEN 15.2 mg/dL (7-18)
[2020-02-17 08:51] LABS: MAGNESIUM 1.6 mg/dL (1.8-2.4)
[2020-02-17 08:53] LABS: CREATININE 0.7 mg/dL (0.55-1.3)
[2020-02-17 09:12] LABS: CALCIUM 6.9 mg/dL (8.5-10.1)
[2020-02-17] MEDS: FAMOTIDINE 20 MG TABLET PO SCH ×2 (10:09→21:27)
[2020-02-17] MEDS: metoPROLOL SUCCINATE 25 MG TAB.SR.24H (FP) PO SCH (10:09)
[2020-02-17] MEDS: AZITHROMYCIN IVPB 250 MG in DEXTROSE 5%-WATER - 250 ML IVPB SCH (10:09)
[2020-02-17] MEDS: MAGNESIUM OXIDE 400 MG TABLET (FP) PO SCH ×2 (10:09→21:27)
[2020-02-17 11:09] LABS: INR 4.52 (0.83-1.09)
[2020-02-17] MEDS ORDERED: DEXAMETHASONE SOD PHOSPHATE 4 MG/1 ML VIAL IVPUSH SCH (11:30)
[2020-02-17] MEDS ORDERED: POTASSIUM CHLORIDE TABS 20 MEQ TABLET.ER (FP) PO ONE (12:00)
[2020-02-17] MEDS ORDERED: MAGNESIUM 1GM/D5W - 1 GM/100 ML IVPB IVPB ONE (12:00)
[2020-02-17] MEDS ORDERED: CALCIUM GLUCONATE 10% - 1,000 MG/10 ML VIAL IVPB ONE (12:15)
[2020-02-17] MEDS: DEXAMETHASONE SOD PHOSPHATE 4 MG/1 ML VIAL IVPUSH SCH (12:15)
[2020-02-17] MEDS ORDERED: DEXTROSE 5%-WATER 100 ML IVPB ONE (13:29)
[2020-02-17] MEDS ORDERED: REMDESIVIR 200 MG in SODIUM CHLORIDE 210 ML IVPB ONE (14:00)
[2020-02-17] MEDS: CEFTRIAXONE 2 GM in DEXTROSE 5%-WATER 2 GM/100 ML BAG IVPB SCH (15:25)
[2020-02-17 16:39] LABS: EPI CELLS >36 /uL (0-25.1); HYALINE CASTS 23 /uL (0-3.1); PH,URINE 5.5 (5.0-8.0); URINE APPEARANCE CLEAR; URINE BACTERIA 28 /uL (0-1359); URINE BILIRUBIN NEGATIVE (NEGATIVE); URINE COLOR YELLOW; URINE GLUCOSE (UA) NEGATIVE (NEGATIVE); URINE KETONE NEGATIVE (NEGATIVE); URINE LEUK ESTERASE NEGATIVE (NEGATIVE); URINE NITRITE NEGATIVE (NEGATIVE); URINE PROTEIN 2+ (NEGATIVE); URINE RBC 38 /uL (0-23.9); URINE WBC 44 /uL (0-25.8)
[2020-02-18] MEDS: DEXTROSE 5%-0.45% SALINE 1,000 ML IV SCH ×2 (07:15→21:21)
[2020-02-18 08:27] LABS: HEMATOCRIT 40.2 % (35.4-49); INR 3.95 (0.83-1.09); MCH 30.4 pg (25.7-33.7); MCHC 34.7 g/dl (32.0-35.9); MEAN CELL VOLUME 87.5 fl (80-96); MEAN PLT VOLUME 8.9 fl (7.5-11.1); PLATELET COUNT 171 K/MM3 (134-434); PROTHROMBIN TIME (PATIENT) 46.7 SEC (9.7-13.0); RDW 13.2 % (11.9-15.9); WHITE BLOOD COUNT 4.8 K/mm3 (4.0-10.0)
[2020-02-18 08:39] LABS: BLOOD UREA NITROGEN 21.7 mg/dL (7-18); CALCIUM 7.3 mg/dL (8.5-10.1); MAGNESIUM 2.1 mg/dL (1.8-2.4)
[2020-02-18 08:40] LABS: ALBUMIN 2.4 g/dl (3.4-5.0)
[2020-02-18 08:42] LABS: CREATININE 0.7 mg/dL (0.55-1.3)
[2020-02-18 08:43] LABS: PHOSPHOROUS 2.5 mg/dL (2.5-4.9)
[2020-02-18 08:44] LABS: BILIRUBIN,TOTAL 0.8 mg/dL (0.2-1); TOT PROT 5.5 g/dl (6.4-8.2)
[2020-02-18 08:46] LABS: POTASSIUM 3.8 mmol/L (3.5-5.1)
[2020-02-18] MEDS ORDERED: PT OWN MED DRAWER 7, Y5N ONE ×2 (08:49→10:15)
[2020-02-18] MEDS ORDERED: DEXTROSE 5%-WATER 100 ML IVPB ONE ×2 (08:50→10:15)
[2020-02-18] MEDS: CEFTRIAXONE 2 GM in DEXTROSE 5%-WATER 2 GM/100 ML BAG IVPB SCH (10:14)
[2020-02-18] MEDS: DEXAMETHASONE SOD PHOSPHATE 4 MG/1 ML VIAL IVPUSH SCH (10:16)
[2020-02-18] MEDS: MAGNESIUM OXIDE 400 MG TABLET (FP) PO SCH ×2 (10:16→22:15)
[2020-02-18] MEDS: metoPROLOL SUCCINATE 25 MG TAB.SR.24H (FP) PO SCH (10:16)
[2020-02-18] MEDS: FAMOTIDINE 20 MG TABLET PO SCH ×2 (10:27→22:15)
[2020-02-18] MEDS: AZITHROMYCIN IVPB 250 MG in DEXTROSE 5%-WATER - 250 ML IVPB SCH (13:05)
[2020-02-18] MEDS: REMDESIVIR 100 MG in SODIUM CHLORIDE 230 ML IVPB SCH (14:55)
[2020-02-18] MEDS: ALBUTEROL SO4 HFA INHALER IH SCH ×2 (14:58→21:00)
[2020-02-18] MEDS: WARFARIN NA 3 MG TABLET PO SCH (17:30)
[2020-02-19] MEDS: DEXTROSE 5%-0.45% SALINE 1,000 ML IV SCH (08:00)
[2020-02-19] MEDS ORDERED: DEXTROSE 5%-WATER 100 ML IVPB ONE (08:51)
[2020-02-19] MEDS ORDERED: PT OWN MED DRAWER 7, Y5N ONE (08:51)
[2020-02-19 09:04] LABS: INR 3.89 (0.83-1.09); PROTHROMBIN TIME (PATIENT) 45.2 SEC (9.7-13.0)
[2020-02-19 09:08] LABS: HEMATOCRIT 37.6 % (35.4-49); HEMOGLOBIN 12.8 GM/dL (11.7-16.9); MCH 30.1 pg (25.7-33.7); MCHC 34.1 g/dl (32.0-35.9); MEAN CELL VOLUME 88.4 fl (80-96); MEAN PLT VOLUME 8.7 fl (7.5-11.1); PLATELET COUNT 195 K/MM3 (134-434); RBC 4.25 M/mm3 (4.00-5.60); RDW 13.7 % (11.9-15.9); WHITE BLOOD COUNT 6.4 K/mm3 (4.0-10.0)
[2020-02-19 09:11] LABS: POTASSIUM 3.7 mmol/L (3.5-5.1)
[2020-02-19 09:14] LABS: CALCIUM 7.5 mg/dL (8.5-10.1)
[2020-02-19 09:15] LABS: ALBUMIN 2.4 g/dl (3.4-5.0); BLOOD UREA NITROGEN 28.4 mg/dL (7-18); MAGNESIUM 2.2 mg/dL (1.8-2.4)
[2020-02-19 09:18] LABS: CREATININE 0.8 mg/dL (0.55-1.3)
[2020-02-19 09:19] LABS: BILIRUBIN,TOTAL 0.6 mg/dL (0.2-1); TOT PROT 5.2 g/dl (6.4-8.2)
[2020-02-19] MEDS: AZITHROMYCIN IVPB 250 MG in DEXTROSE 5%-WATER - 250 ML IVPB SCH (10:01)
[2020-02-19] MEDS: metoPROLOL SUCCINATE 25 MG TAB.SR.24H (FP) PO SCH (10:02)
[2020-02-19] MEDS: ALBUTEROL SO4 HFA INHALER IH SCH ×3 (10:02→20:12)
[2020-02-19] MEDS: CEFTRIAXONE 2 GM in DEXTROSE 5%-WATER 2 GM/100 ML BAG IVPB SCH (10:02)
[2020-02-19] MEDS: MAGNESIUM OXIDE 400 MG TABLET (FP) PO SCH ×2 (10:02→22:24)
[2020-02-19] MEDS: DEXAMETHASONE SOD PHOSPHATE 4 MG/1 ML VIAL IVPUSH SCH (10:02)
[2020-02-19] MEDS: FAMOTIDINE 20 MG TABLET PO SCH ×2 (10:02→22:24)
[2020-02-19] MEDS: LACTOBACILLUS ACIDOPHILUS 1 TABLET PO SCH (14:25)
[2020-02-19] MEDS: REMDESIVIR 100 MG in SODIUM CHLORIDE 230 ML IVPB SCH (14:26)
[2020-02-19] MEDS: AMINO ACIDS/PROTEIN HYDROLYS 30 ML LIQUID.PKT PO SCH (18:25)
[2020-02-20 09:31] LABS: INR 3.43 (0.83-1.09); PROTHROMBIN TIME (PATIENT) 40.7 SEC (9.7-13.0)
[2020-02-20] MEDS ORDERED: DEXTROSE 5%-WATER 100 ML IVPB ONE (09:49)
[2020-02-20] MEDS: CEFTRIAXONE 2 GM in DEXTROSE 5%-WATER 2 GM/100 ML BAG IVPB SCH (10:12)
[2020-02-20] MEDS: DEXAMETHASONE SOD PHOSPHATE 4 MG/1 ML VIAL IVPUSH SCH (10:13)
[2020-02-20] MEDS: metoPROLOL SUCCINATE 25 MG TAB.SR.24H (FP) PO SCH (10:13)
[2020-02-20] MEDS: AMINO ACIDS/PROTEIN HYDROLYS 30 ML LIQUID.PKT PO SCH ×2 (10:13→17:12)
[2020-02-20] MEDS: ALBUTEROL SO4 HFA INHALER IH SCH ×3 (10:13→21:04)
[2020-02-20] MEDS: FAMOTIDINE 20 MG TABLET PO SCH ×2 (10:13→21:04)
[2020-02-20] MEDS: MAGNESIUM OXIDE 400 MG TABLET (FP) PO SCH ×2 (10:13→21:04)
[2020-02-20] MEDS: LACTOBACILLUS ACIDOPHILUS 1 TABLET PO SCH (10:14)
[2020-02-20] MEDS: AZITHROMYCIN IVPB 250 MG in DEXTROSE 5%-WATER - 250 ML IVPB SCH (11:09)
[2020-02-20] MEDS: REMDESIVIR 100 MG in SODIUM CHLORIDE 230 ML IVPB SCH (13:55)
[2020-02-20] MEDS: WARFARIN NA 3 MG TABLET PO SCH (17:12)
[2020-02-21 07:36] LABS: PROTHROMBIN TIME (PATIENT) 47.5 SEC (9.7-13.0)
[2020-02-21 07:39] LABS: HEMATOCRIT 39.6 % (35.4-49); HEMOGLOBIN 13.7 GM/dL (11.7-16.9); MCH 30.5 pg (25.7-33.7); MCHC 34.5 g/dl (32.0-35.9); MEAN CELL VOLUME 88.4 fl (80-96); MEAN PLT VOLUME 8.4 fl (7.5-11.1); PLATELET COUNT 269 K/MM3 (134-434); POTASSIUM 4.3 mmol/L (3.5-5.1); RBC 4.48 M/mm3 (4.00-5.60); RDW 13.4 % (11.9-15.9); WHITE BLOOD COUNT 10.5 K/mm3 (4.0-10.0)
[2020-02-21 07:57] LABS: CALCIUM 7.7 mg/dL (8.5-10.1)
[2020-02-21 07:58] LABS: BLOOD UREA NITROGEN 25.4 mg/dL (7-18)
[2020-02-21 08:01] LABS: CREATININE 0.8 mg/dL (0.55-1.3); INR 4.02 (0.83-1.09)
[2020-02-21] MEDS ORDERED: DEXTROSE 5%-WATER 100 ML IVPB ONE (09:29)
[2020-02-21] MEDS ORDERED: PT OWN MED DRAWER 7, Y5N ONE (09:29)
[2020-02-21] MEDS: CEFTRIAXONE 2 GM in DEXTROSE 5%-WATER 2 GM/100 ML BAG IVPB SCH (10:26)
[2020-02-21] MEDS: CHOLECALCIFEROL (VIT D3) 400 UNIT (10 MCG) TABLET PO SCH (10:26)
[2020-02-21] MEDS: ALBUTEROL SO4 HFA INHALER IH SCH ×3 (10:26→21:04)
[2020-02-21] MEDS: AZITHROMYCIN 250 MG TABLET PO SCH (10:26)
[2020-02-21] MEDS: AMINO ACIDS/PROTEIN HYDROLYS 30 ML LIQUID.PKT PO SCH ×2 (10:26→17:54)
[2020-02-21] MEDS: FAMOTIDINE 20 MG TABLET PO SCH ×2 (10:26→21:04)
[2020-02-21] MEDS: LACTOBACILLUS ACIDOPHILUS 1 TABLET PO SCH (10:27)
[2020-02-21] MEDS: DEXAMETHASONE SOD PHOSPHATE 4 MG/1 ML VIAL IVPUSH SCH (10:27)
[2020-02-21] MEDS: MAGNESIUM OXIDE 400 MG TABLET (FP) PO SCH ×2 (10:28→21:05)
[2020-02-21] MEDS: metoPROLOL SUCCINATE 25 MG TAB.SR.24H (FP) PO SCH (10:28)
[2020-02-21] MEDS: REMDESIVIR 100 MG in SODIUM CHLORIDE 230 ML IVPB SCH (14:06)
[2020-02-21] MEDS: WARFARIN NA 3 MG TABLET PO SCH (17:06)
[2020-02-21] MEDS: DOCUSATE SODIUM 100 MG CAPSULE (FP) PO SCH (21:05)
[2020-02-22 07:53] LABS: POTASSIUM 4.4 mmol/L (3.5-5.1)
[2020-02-22 07:55] LABS: BLOOD UREA NITROGEN 25.9 mg/dL (7-18); CALCIUM 8.2 mg/dL (8.5-10.1)
[2020-02-22 07:59] LABS: CREATININE 0.8 mg/dL (0.55-1.3)
[2020-02-22 08:28] LABS: PROTHROMBIN TIME (PATIENT) 65.1 SEC (9.7-13.0)
[2020-02-22 08:35] LABS: INR 5.56 (0.83-1.09)
[2020-02-22] MEDS ORDERED: DEXTROSE 5%-WATER 100 ML IVPB ONE (09:29)
[2020-02-22] MEDS: DEXAMETHASONE SOD PHOSPHATE 4 MG/1 ML VIAL IVPUSH SCH (09:40)
[2020-02-22] MEDS: DOCUSATE SODIUM 100 MG CAPSULE (FP) PO SCH ×2 (09:41→21:42)
[2020-02-22] MEDS: ALBUTEROL SO4 HFA INHALER IH SCH ×3 (09:41→21:41)
[2020-02-22] MEDS: CHOLECALCIFEROL (VIT D3) 400 UNIT (10 MCG) TABLET PO SCH (09:41)
[2020-02-22] MEDS: CALCIUM (OYSTER SHELL) 500 MG TABLET (FP) PO SCH (09:41)
[2020-02-22] MEDS: AZITHROMYCIN 250 MG TABLET PO SCH (09:41)
[2020-02-22] MEDS: FAMOTIDINE 20 MG TABLET PO SCH ×2 (09:41→21:42)
[2020-02-22] MEDS: AMINO ACIDS/PROTEIN HYDROLYS 30 ML LIQUID.PKT PO SCH ×2 (09:41→16:38)
[2020-02-22] MEDS: MAGNESIUM OXIDE 400 MG TABLET (FP) PO SCH ×2 (09:41→21:42)
[2020-02-22] MEDS: metoPROLOL SUCCINATE 25 MG TAB.SR.24H (FP) PO SCH (09:41)
[2020-02-22] MEDS: CEFTRIAXONE 2 GM in DEXTROSE 5%-WATER 2 GM/100 ML BAG IVPB SCH (09:42)
[2020-02-22] MEDS: LACTOBACILLUS ACIDOPHILUS 1 TABLET PO SCH (09:42)
[2020-02-22 10:17] LABS: BASO % 0.1 % (0-2.0); HEMATOCRIT 40.8 % (35.4-49); HEMOGLOBIN 13.9 GM/dL (11.7-16.9); LYMPH % 4.9 % (8-40); MCH 30.4 pg (25.7-33.7); MEAN CELL VOLUME 89.3 fl (80-96); MEAN PLT VOLUME 8.5 fl (7.5-11.1); PLATELET COUNT 262 K/MM3 (134-434); RBC 4.57 M/mm3 (4.00-5.60); RDW 13.5 % (11.9-15.9); WHITE BLOOD COUNT 10.1 K/mm3 (4.0-10.0)
[2020-02-22 12:27] LABS: ANISOCYTOSIS 0; MACROCYTOSIS 0; PLATELET ESTIMATE NORMAL
[2020-02-22] MEDS ORDERED: PHYTONADIONE 5 MG TABLET PO ONE (14:00)
[2020-02-22] MEDS ORDERED: LOSARTAN POTASSIUM 25 MG TABLET PO ONE (16:47)
[2020-02-23 08:08] LABS: INR 2.75 (0.83-1.09); PROTHROMBIN TIME (PATIENT) 32.8 SEC (9.7-13.0)
[2020-02-23 08:21] LABS: CHLORIDE 104 mmol/L (98-107); POTASSIUM 4.5 mmol/L (3.5-5.1); SODIUM 141 mmol/L (136-145)
[2020-02-23 08:26] LABS: ANION GAP 8 MMOL/L (8-16); CO2 29 mmol/L (21-32); GLUCOSE,RANDOM 100 mg/dL (74-106)
[2020-02-23 08:29] LABS: CREATININE 0.8 mg/dL (0.55-1.3)
[2020-02-23 08:32] LABS: LDH 350 U/L (87-246)
[2020-02-23] MEDS ORDERED: DEXTROSE 5%-WATER 100 ML IVPB ONE (08:53)
[2020-02-23] MEDS: CEFTRIAXONE 2 GM in DEXTROSE 5%-WATER 2 GM/100 ML BAG IVPB SCH (09:12)
[2020-02-23] MEDS: MAGNESIUM OXIDE 400 MG TABLET (FP) PO SCH ×2 (09:13→22:19)
[2020-02-23] MEDS: DOCUSATE SODIUM 100 MG CAPSULE (FP) PO SCH ×2 (09:13→22:19)
[2020-02-23] MEDS: CHOLECALCIFEROL (VIT D3) 400 UNIT (10 MCG) TABLET PO SCH (09:13)
[2020-02-23] MEDS: DEXAMETHASONE SOD PHOSPHATE 4 MG/1 ML VIAL IVPUSH SCH (09:13)
[2020-02-23] MEDS: metoPROLOL SUCCINATE 25 MG TAB.SR.24H (FP) PO SCH (09:13)
[2020-02-23] MEDS: CALCIUM (OYSTER SHELL) 500 MG TABLET (FP) PO SCH (09:13)
[2020-02-23] MEDS: FAMOTIDINE 20 MG TABLET PO SCH ×2 (09:13→22:19)
[2020-02-23] MEDS: AZITHROMYCIN 250 MG TABLET PO SCH (09:13)
[2020-02-23] MEDS: ALBUTEROL SO4 HFA INHALER IH SCH ×2 (09:14→13:45)
[2020-02-23] MEDS: AMINO ACIDS/PROTEIN HYDROLYS 30 ML LIQUID.PKT PO SCH ×2 (09:14→17:42)
[2020-02-23] MEDS: LACTOBACILLUS ACIDOPHILUS 1 TABLET PO SCH (09:14)
[2020-02-23] MEDS: LOSARTAN POTASSIUM 50 MG TABLET PO SCH (11:50)
[2020-02-23] MEDS ORDERED: PIPERACILLIN/TAZOBACTAM 2.25 GM VIAL IVPB ONE (17:38)
[2020-02-23] MEDS ORDERED: DEXTROSE 5%-WATER - 50 ML IVPB ONE (17:39)
[2020-02-23] MEDS: WARFARIN NA 2.5 MG TABLET PO SCH (17:59)
[2020-02-23] MEDS ORDERED: PIPERACILLIN/TAZOB 2.25 GM 2.25 GM in DEXTROSE 5%-WATER - 50 ML IVPB SCH (18:00)
[2020-02-23] MEDS ORDERED: ALBUTEROL SO4 2.5/IPRATROPIUM 0.5 INH SOL 3 ML VIAL.NEB. NEB SCH (22:00)
[2020-02-24] MEDS ORDERED: PIPERACILLIN/TAZOBACTAM 3.375 GM VIAL IVPB ONE ×3 (01:09→17:10)
[2020-02-24] MEDS ORDERED: DEXTROSE 5%-WATER - 50 ML IVPB ONE ×3 (01:09→17:10)
[2020-02-24] MEDS: PIPERACILLIN/TAZOB 3.375 GM 3.375 GM in DEXTROSE 5%-WATER - 50 ML IVPB SCH ×3 (02:16→18:38)
[2020-02-24 07:48] LABS: HEMATOCRIT 46.3 % (35.4-49); HEMOGLOBIN 15.8 GM/dL (11.7-16.9); MCH 30.5 pg (25.7-33.7); MCHC 34.1 g/dl (32.0-35.9); MEAN CELL VOLUME 89.4 fl (80-96); MEAN PLT VOLUME 8.4 fl (7.5-11.1); PLATELET COUNT 340 K/MM3 (134-434); RBC 5.18 M/mm3 (4.00-5.60); RDW 13.8 % (11.9-15.9); WHITE BLOOD COUNT 15.5 K/mm3 (4.0-10.0)
[2020-02-24 07:57] LABS: INR 2.42 (0.83-1.09); PROTHROMBIN TIME (PATIENT) 28.5 SEC (9.7-13.0)
[2020-02-24 08:09] LABS: POTASSIUM 5.1 mmol/L (3.5-5.1)
[2020-02-24 08:29] LABS: BLOOD UREA NITROGEN 34.3 mg/dL (7-18); CALCIUM 8.3 mg/dL (8.5-10.1)
[2020-02-24 08:33] LABS: CREATININE 0.9 mg/dL (0.55-1.3)
[2020-02-24] MEDS: AMINO ACIDS/PROTEIN HYDROLYS 30 ML LIQUID.PKT PO SCH ×2 (11:27→18:39)
[2020-02-24] MEDS: LACTOBACILLUS ACIDOPHILUS 1 TABLET PO SCH (11:28)
[2020-02-24] MEDS: FAMOTIDINE 20 MG TABLET PO SCH ×2 (11:28→21:57)
[2020-02-24] MEDS: MAGNESIUM OXIDE 400 MG TABLET (FP) PO SCH ×2 (11:28→21:57)
[2020-02-24] MEDS: CHOLECALCIFEROL (VIT D3) 400 UNIT (10 MCG) TABLET PO SCH (11:28)
[2020-02-24] MEDS: DEXAMETHASONE SOD PHOSPHATE 4 MG/1 ML VIAL IVPUSH SCH (11:29)
[2020-02-24] MEDS: CALCIUM (OYSTER SHELL) 500 MG TABLET (FP) PO SCH (11:29)
[2020-02-24] MEDS: LOSARTAN POTASSIUM 50 MG TABLET PO SCH (11:29)
[2020-02-24] MEDS: DOCUSATE SODIUM 100 MG CAPSULE (FP) PO SCH ×2 (11:29→21:57)
[2020-02-24] MEDS: metoPROLOL SUCCINATE 25 MG TAB.SR.24H (FP) PO SCH (11:30)
[2020-02-24] MEDS ORDERED: BISACODYL 5 MG TABLET.DR (FP) PO ONE (15:58)
[2020-02-24] MEDS: WARFARIN NA 2.5 MG TABLET PO SCH (18:39)
[2020-02-24] MEDS: AMINO ACIDS 4.25%/D5W 1,000 ML IV SCH (20:08)
[2020-02-24] MEDS ORDERED: ACETAMINOPHEN 500 MG TABLET (FP) PO ONE (21:27)
[2020-02-24] MEDS ORDERED: ACETAMINOPHEN 500 MG TABLET (FP) PO PRN (21:27)
[2020-02-24] MEDS: MIRTAZAPINE 15 MG TABLET (FP) PO SCH (21:56)
[2020-02-25] MEDS ORDERED: PIPERACILLIN/TAZOBACTAM 3.375 GM VIAL IVPB ONE ×3 (02:24→16:38)
[2020-02-25] MEDS ORDERED: DEXTROSE 5%-WATER - 50 ML IVPB ONE ×3 (02:24→16:39)
[2020-02-25] MEDS: PIPERACILLIN/TAZOB 3.375 GM 3.375 GM in DEXTROSE 5%-WATER - 50 ML IVPB SCH ×3 (02:38→17:18)
[2020-02-25 08:24] LABS: PROTHROMBIN TIME (PATIENT) 49.6 SEC (9.7-13.0)
[2020-02-25 08:27] LABS: HEMATOCRIT 46.1 % (35.4-49); HEMOGLOBIN 15.6 GM/dL (11.7-16.9); MCH 30.4 pg (25.7-33.7); MCHC 33.9 g/dl (32.0-35.9); MEAN CELL VOLUME 89.8 fl (80-96); MEAN PLT VOLUME 8.4 fl (7.5-11.1); PLATELET COUNT 339 K/MM3 (134-434); RBC 5.14 M/mm3 (4.00-5.60); RDW 14.3 % (11.9-15.9); WHITE BLOOD COUNT 17.9 K/mm3 (4.0-10.0)
[2020-02-25 08:30] LABS: POTASSIUM 4.4 mmol/L (3.5-5.1)
[2020-02-25 08:47] LABS: CALCIUM 8.7 mg/dL (8.5-10.1)
[2020-02-25 08:48] LABS: BLOOD UREA NITROGEN 39.2 mg/dL (7-18)
[2020-02-25] MEDS: AMINO ACIDS/PROTEIN HYDROLYS 30 ML LIQUID.PKT PO SCH ×2 (09:24→16:44)
[2020-02-25] MEDS: CHOLECALCIFEROL (VIT D3) 400 UNIT (10 MCG) TABLET PO SCH (09:25)
[2020-02-25] MEDS: DEXAMETHASONE SOD PHOSPHATE 4 MG/1 ML VIAL IVPUSH SCH (09:25)
[2020-02-25] MEDS: CALCIUM (OYSTER SHELL) 500 MG TABLET (FP) PO SCH (09:25)
[2020-02-25] MEDS: LOSARTAN POTASSIUM 50 MG TABLET PO SCH (09:25)
[2020-02-25] MEDS: metoPROLOL SUCCINATE 25 MG TAB.SR.24H (FP) PO SCH (09:25)
[2020-02-25] MEDS: FAMOTIDINE 20 MG TABLET PO SCH ×2 (09:25→22:43)
[2020-02-25] MEDS: MAGNESIUM OXIDE 400 MG TABLET (FP) PO SCH ×2 (09:25→22:43)
[2020-02-25] MEDS: LACTOBACILLUS ACIDOPHILUS 1 TABLET PO SCH (09:26)
[2020-02-25] MEDS: DOCUSATE SODIUM 100 MG CAPSULE (FP) PO SCH ×2 (09:26→22:43)
[2020-02-25 10:24] LABS: INR 4.28 (0.83-1.09)
[2020-02-25] MEDS ORDERED: MORPHINE SULFATE 2 MG/ML VIAL IVPUSH PRN (13:16)
[2020-02-25] MEDS: WARFARIN NA 2.5 MG TABLET PO SCH (17:11)
[2020-02-25] MEDS: AMINO ACIDS 4.25%/D5W 1,000 ML IV SCH (17:18)
[2020-02-25] MEDS: DEXTROSE 5%-0.45% SALINE 1,000 ML IV SCH (18:46)
[2020-02-25] MEDS: OLANZapine 2.5 MG TABLET PO SCH (22:43)
[2020-02-25] MEDS: MIRTAZAPINE 15 MG TABLET (FP) PO SCH (22:43)
[2020-02-26] MEDS ORDERED: PIPERACILLIN/TAZOBACTAM 3.375 GM VIAL IVPB ONE ×3 (01:59→17:46)
[2020-02-26] MEDS ORDERED: DEXTROSE 5%-WATER - 50 ML IVPB ONE ×3 (02:00→17:46)
[2020-02-26] MEDS: PIPERACILLIN/TAZOB 3.375 GM 3.375 GM in DEXTROSE 5%-WATER - 50 ML IVPB SCH ×3 (02:04→18:18)
[2020-02-26] MEDS: DEXTROSE 5%-0.45% SALINE 1,000 ML IV SCH ×2 (02:04→22:03)
[2020-02-26 07:50] LABS: PROTHROMBIN TIME (PATIENT) 92.4 SEC (9.7-13.0)
[2020-02-26 07:55] LABS: POTASSIUM 3.8 mmol/L (3.5-5.1)
[2020-02-26 07:57] LABS: BLOOD UREA NITROGEN 35.1 mg/dL (7-18); MAGNESIUM 2.2 mg/dL (1.8-2.4)
[2020-02-26 07:59] LABS: HEMATOCRIT 41.7 % (35.4-49); HEMOGLOBIN 14.2 GM/dL (11.7-16.9); MCH 30.7 pg (25.7-33.7); MEAN CELL VOLUME 90.4 fl (80-96); MEAN PLT VOLUME 8.7 fl (7.5-11.1); PLATELET COUNT 218 K/MM3 (134-434); RBC 4.61 M/mm3 (4.00-5.60); RDW 14.2 % (11.9-15.9); WHITE BLOOD COUNT 19.9 K/mm3 (4.0-10.0)
[2020-02-26 08:00] LABS: CREATININE 0.9 mg/dL (0.55-1.3)
[2020-02-26 09:10] LABS: INR 8.12 (0.83-1.09)
[2020-02-26] MEDS ORDERED: PHYTONADIONE 5 MG TABLET PO ONE (11:00)
[2020-02-26] MEDS: DEXAMETHASONE SOD PHOSPHATE 4 MG/1 ML VIAL IVPUSH SCH (11:14)
[2020-02-26] MEDS: LOSARTAN POTASSIUM 50 MG TABLET PO SCH (11:15)
[2020-02-26] MEDS: AMINO ACIDS/PROTEIN HYDROLYS 30 ML LIQUID.PKT PO SCH ×2 (11:16→17:36)
[2020-02-26] MEDS: MAGNESIUM OXIDE 400 MG TABLET (FP) PO SCH ×2 (11:16→22:10)
[2020-02-26] MEDS: DOCUSATE SODIUM 100 MG CAPSULE (FP) PO SCH ×2 (11:16→22:10)
[2020-02-26] MEDS: LACTOBACILLUS ACIDOPHILUS 1 TABLET PO SCH (11:16)
[2020-02-26] MEDS: CALCIUM (OYSTER SHELL) 500 MG TABLET (FP) PO SCH (11:17)
[2020-02-26] MEDS: metoPROLOL SUCCINATE 25 MG TAB.SR.24H (FP) PO SCH (11:17)
[2020-02-26] MEDS: CHOLECALCIFEROL (VIT D3) 400 UNIT (10 MCG) TABLET PO SCH (11:17)
[2020-02-26] MEDS: FAMOTIDINE 20 MG TABLET PO SCH ×2 (11:17→22:10)
[2020-02-26] MEDS: LACTULOSE 20 GM/30 ML UDC (FOR ORAL USE ONLY) PO SCH ×4 (11:17→22:10)
[2020-02-26] MEDS: WARFARIN NA 2.5 MG TABLET PO SCH (17:36)
[2020-02-26] MEDS ORDERED: PT OWN MED DRAWER 7, Y5N ONE (21:05)
[2020-02-26] MEDS: OLANZapine 2.5 MG TABLET PO SCH (22:10)
[2020-02-27] MEDS: DEXTROSE 5%-0.45% SALINE 1,000 ML IV SCH ×3 (00:04→17:31)
[2020-02-27] MEDS ORDERED: PIPERACILLIN/TAZOBACTAM 3.375 GM VIAL IVPB ONE ×2 (01:06→08:56)
[2020-02-27] MEDS ORDERED: DEXTROSE 5%-WATER - 50 ML IVPB ONE ×2 (01:07→08:56)
[2020-02-27] MEDS: PIPERACILLIN/TAZOB 3.375 GM 3.375 GM in DEXTROSE 5%-WATER - 50 ML IVPB SCH ×2 (01:43→10:23)
[2020-02-27] MEDS: LACTULOSE 20 GM/30 ML UDC (FOR ORAL USE ONLY) PO SCH ×2 (05:37→13:26)
[2020-02-27 08:34] LABS: PROTHROMBIN TIME (PATIENT) 47.4 SEC (9.7-13.0)
[2020-02-27 08:57] LABS: INR 4.08 (0.83-1.09)
[2020-02-27] MEDS: metoPROLOL SUCCINATE 25 MG TAB.SR.24H (FP) PO SCH (09:55)
[2020-02-27] MEDS: FAMOTIDINE 20 MG TABLET PO SCH (09:55)
[2020-02-27] MEDS: AMINO ACIDS/PROTEIN HYDROLYS 30 ML LIQUID.PKT PO SCH ×2 (09:55→17:32)
[2020-02-27] MEDS: MAGNESIUM OXIDE 400 MG TABLET (FP) PO SCH (09:55)
[2020-02-27] MEDS: LOSARTAN POTASSIUM 50 MG TABLET PO SCH (09:55)
[2020-02-27] MEDS: CALCIUM (OYSTER SHELL) 500 MG TABLET (FP) PO SCH (09:56)
[2020-02-27] MEDS: CHOLECALCIFEROL (VIT D3) 400 UNIT (10 MCG) TABLET PO SCH (09:56)
[2020-02-27] MEDS: LACTOBACILLUS ACIDOPHILUS 1 TABLET PO SCH (09:56)
[2020-02-27] MEDS: DOCUSATE SODIUM 100 MG CAPSULE (FP) PO SCH (09:56)
[2020-02-27] MEDS: DEXAMETHASONE SOD PHOSPHATE 4 MG/1 ML VIAL IVPUSH SCH (09:57)
[2020-02-27 13:27] LABS: BASO % 0.4 % (0-2.0); HEMATOCRIT 41.7 % (35.4-49); HEMOGLOBIN 13.7 GM/dL (11.7-16.9); LYMPH % 1.1 % (8-40); MCH 30.2 pg (25.7-33.7); MCHC 32.9 g/dl (32.0-35.9); MEAN CELL VOLUME 91.7 fl (80-96); MEAN PLT VOLUME 9.3 fl (7.5-11.1); MONO % 4.4 % (3.8-10.2); NEUT % 94.1 % (42.8-82.8); PLATELET COUNT 167 K/MM3 (134-434); RBC 4.55 M/mm3 (4.00-5.60); RDW 14.3 % (11.9-15.9); WHITE BLOOD COUNT 20.1 K/mm3 (4.0-10.0)
[2020-02-27 13:47] LABS: ALBUMIN 2.1 g/dl (3.4-5.0); BLOOD UREA NITROGEN 26.8 mg/dL (7-18); CALCIUM 7.8 mg/dL (8.5-10.1)
[2020-02-27 13:51] LABS: CREATININE 0.8 mg/dL (0.55-1.3)
[2020-02-27 13:52] LABS: BILIRUBIN,TOTAL 1.5 mg/dL (0.2-1); TOT PROT 5.5 g/dl (6.4-8.2)
[2020-02-27 15:08] LABS: ANISOCYTOSIS 1+; MACROCYTOSIS 0; OVALOCYTE 1+; PLATELET ESTIMATE NORMAL
[2020-02-27] MEDS: AMINO ACIDS 4.25%/D5W 1,000 ML IV SCH (18:03)
[2020-02-27] MEDS ORDERED: ACETAMINOPHEN 1000 MG/100 ML VIAL (NON FORMULARY) IVPB PRN (18:30)
[2020-02-27] MEDS ORDERED: SODIUM CHLORIDE 100 ML IVPB ONE (22:39)
[2020-02-27] MEDS ORDERED: AMPICILLIN NA/SULBACTAM NA 1.5 GM VIAL ONE (22:39)
[2020-02-27] MEDS: AMPICILLIN NA IVPB SCH (22:41)
[2020-02-27] MEDS: SODIUM CHLORIDE IVPB SCH (22:41)
[2020-02-27] MEDS: SULBACTAM NA IVPB SCH (22:41)
[2020-02-27] MEDS: ALBUTEROL SULFATE 2 MG/5 ML SOLUTION PO SCH (23:00)
[2020-02-28] MEDS ORDERED: SODIUM CHLORIDE 100 ML IVPB ONE ×4 (02:10→20:08)
[2020-02-28] MEDS ORDERED: AMPICILLIN NA/SULBACTAM NA 1.5 GM VIAL ONE ×4 (02:10→20:08)
[2020-02-28] MEDS: AMPICILLIN NA IVPB SCH ×4 (02:12→20:14)
[2020-02-28] MEDS: SULBACTAM NA IVPB SCH ×4 (02:12→20:14)
[2020-02-28] MEDS: SODIUM CHLORIDE IVPB SCH ×4 (02:12→20:14)
[2020-02-28] MEDS: ALBUTEROL SULFATE 2 MG/5 ML SOLUTION PO SCH ×3 (05:58→21:11)
[2020-02-28] MEDS: DEXTROSE 5%-0.45% SALINE 1,000 ML IV SCH ×2 (06:17→21:11)
[2020-02-28 08:49] LABS: HEMATOCRIT 40.8 % (35.4-49); HEMOGLOBIN 13.6 GM/dL (11.7-16.9); INR 2.85 (0.83-1.09); MCH 30.7 pg (25.7-33.7); MCHC 33.2 g/dl (32.0-35.9); MEAN CELL VOLUME 92.3 fl (80-96); MEAN PLT VOLUME 9.5 fl (7.5-11.1); PLATELET COUNT 157 K/MM3 (134-434); RBC 4.42 M/mm3 (4.00-5.60); RDW 14.5 % (11.9-15.9); WHITE BLOOD COUNT 14.9 K/mm3 (4.0-10.0)
[2020-02-28 08:59] LABS: POTASSIUM 4.5 mmol/L (3.5-5.1)
[2020-02-28 09:00] LABS: CALCIUM 8.4 mg/dL (8.5-10.1)
[2020-02-28 09:01] LABS: BLOOD UREA NITROGEN 25.1 mg/dL (7-18)
[2020-02-28 09:04] LABS: CREATININE 0.9 mg/dL (0.55-1.3)
[2020-02-28] MEDS: MULTIVIT-MINERALS ORAL LIQUID PO SCH (09:21)
[2020-02-28] MEDS: LACTOBACILLUS ACIDOPHILUS 1 TABLET PO SCH (09:29)
[2020-02-28] MEDS: FAMOTIDINE 20 MG TABLET PO SCH (09:29)
[2020-02-28] MEDS: DEXAMETHASONE SOD PHOSPHATE 4 MG/1 ML VIAL IVPUSH SCH (09:29)
[2020-02-28] MEDS: LOSARTAN POTASSIUM 50 MG TABLET PO SCH (09:40)
[2020-02-28] MEDS: metoPROLOL SUCCINATE 25 MG TAB.SR.24H (FP) PO SCH (09:40)
[2020-02-28] MEDS ORDERED: WARFARIN NA 1 MG TABLET PO SCH (18:00)
[2020-02-29] MEDS ORDERED: SODIUM CHLORIDE 100 ML IVPB ONE ×3 (00:14→20:57)
[2020-02-29] MEDS ORDERED: AMPICILLIN NA/SULBACTAM NA 1.5 GM VIAL ONE ×4 (00:14→20:57)
[2020-02-29] MEDS: SODIUM CHLORIDE IVPB SCH ×4 (03:02→21:35)
[2020-02-29] MEDS: AMPICILLIN NA IVPB SCH ×4 (03:02→21:35)
[2020-02-29] MEDS: SULBACTAM NA IVPB SCH ×4 (03:02→21:35)
[2020-02-29] MEDS: ALBUTEROL SULFATE 2 MG/5 ML SOLUTION PO SCH ×3 (05:00→21:35)
[2020-02-29 07:55] LABS: HEMOGLOBIN 13.7 GM/dL (11.7-16.9); MCHC 32.7 g/dl (32.0-35.9); MEAN CELL VOLUME 91.6 fl (80-96); MEAN PLT VOLUME 9.5 fl (7.5-11.1); PLATELET COUNT 160 K/MM3 (134-434); RBC 4.58 M/mm3 (4.00-5.60); RDW 14.5 % (11.9-15.9); WHITE BLOOD COUNT 12.6 K/mm3 (4.0-10.0)
[2020-02-29 08:02] LABS: INR 3.32 (0.83-1.09); PROTHROMBIN TIME (PATIENT) 38.8 SEC (9.7-13.0)
[2020-02-29 08:18] LABS: POTASSIUM 4.3 mmol/L (3.5-5.1)
[2020-02-29 08:21] LABS: CALCIUM 8.3 mg/dL (8.5-10.1)
[2020-02-29 08:22] LABS: BLOOD UREA NITROGEN 26.2 mg/dL (7-18)
[2020-02-29 08:25] LABS: CREATININE 0.7 mg/dL (0.55-1.3)
[2020-02-29] MEDS ORDERED: PT OWN MED DRAWER 7, Y5N ONE ×2 (09:08→20:56)
[2020-02-29] MEDS: LOSARTAN POTASSIUM 50 MG TABLET PO SCH (10:09)
[2020-02-29] MEDS: FAMOTIDINE 20 MG TABLET PO SCH (10:09)
[2020-02-29] MEDS: LACTOBACILLUS ACIDOPHILUS 1 TABLET PO SCH (10:09)
[2020-02-29] MEDS: DEXAMETHASONE SOD PHOSPHATE 4 MG/1 ML VIAL IVPUSH SCH (10:10)
[2020-02-29] MEDS: metoPROLOL SUCCINATE 25 MG TAB.SR.24H (FP) PO SCH (10:10)
[2020-02-29] MEDS: MULTIVIT-MINERALS ORAL LIQUID PO SCH (10:11)
[2020-02-29] MEDS ORDERED: DEXTROSE 5%-0.45% SALINE 1,000 ML IV SCH (16:43)
[2020-02-29] MEDS: AMINO ACIDS 4.25%/D5W 1,000 ML IV SCH (17:40)
[2020-03-01] MEDS ORDERED: AMPICILLIN NA/SULBACTAM NA 1.5 GM VIAL ONE ×4 (02:08→22:03)
[2020-03-01] MEDS ORDERED: SODIUM CHLORIDE 100 ML IVPB ONE ×4 (02:09→22:03)
[2020-03-01] MEDS: SODIUM CHLORIDE IVPB SCH ×4 (02:15→22:06)
[2020-03-01] MEDS: AMPICILLIN NA IVPB SCH ×4 (02:15→22:06)
[2020-03-01] MEDS: SULBACTAM NA IVPB SCH ×4 (02:15→22:06)
[2020-03-01] MEDS: ALBUTEROL SULFATE 2 MG/5 ML SOLUTION PO SCH ×3 (05:42→22:05)
[2020-03-01 07:41] LABS: HEMATOCRIT 38.3 % (35.4-49); HEMOGLOBIN 12.7 GM/dL (11.7-16.9); MCH 30.5 pg (25.7-33.7); MCHC 33.1 g/dl (32.0-35.9); MEAN CELL VOLUME 91.9 fl (80-96); MEAN PLT VOLUME 9.2 fl (7.5-11.1); PLATELET COUNT 140 K/MM3 (134-434); RBC 4.17 M/mm3 (4.00-5.60); WHITE BLOOD COUNT 11.4 K/mm3 (4.0-10.0)
[2020-03-01 07:52] LABS: INR 3.44 (0.83-1.09); PROTHROMBIN TIME (PATIENT) 40.2 SEC (9.7-13.0)
[2020-03-01 08:00] LABS: POTASSIUM 3.9 mmol/L (3.5-5.1)
[2020-03-01 08:03] LABS: CALCIUM 7.9 mg/dL (8.5-10.1)
[2020-03-01 08:04] LABS: BLOOD UREA NITROGEN 28.9 mg/dL (7-18)
[2020-03-01 08:07] LABS: CREATININE 0.7 mg/dL (0.55-1.3)
[2020-03-01] MEDS: DEXAMETHASONE SOD PHOSPHATE 4 MG/1 ML VIAL IVPUSH SCH (11:12)
[2020-03-01] MEDS: LACTOBACILLUS ACIDOPHILUS 1 TABLET PO SCH (11:13)
[2020-03-01] MEDS: FAMOTIDINE 20 MG TABLET PO SCH (11:14)
[2020-03-01] MEDS: MULTIVIT-MINERALS ORAL LIQUID PO SCH (11:14)
[2020-03-01] MEDS: metoPROLOL SUCCINATE 25 MG TAB.SR.24H (FP) PO SCH (11:22)
[2020-03-01] MEDS: LOSARTAN POTASSIUM 50 MG TABLET PO SCH (11:22)
[2020-03-01] MEDS: AMINO ACIDS 4.25%/D5W 1,000 ML IV SCH (18:29)
[2020-03-01] MEDS: CYPROHEPTADINE HYDROCHLORIDE 2 MG/5 ML SOLUTION PO SCH (22:06)
[2020-03-02] MEDS ORDERED: AMPICILLIN NA/SULBACTAM NA 1.5 GM VIAL ONE ×3 (02:00→15:12)
[2020-03-02] MEDS ORDERED: SODIUM CHLORIDE 100 ML IVPB ONE ×3 (02:01→15:13)
[2020-03-02] MEDS: AMPICILLIN NA IVPB SCH ×3 (02:06→15:30)
[2020-03-02] MEDS: SULBACTAM NA IVPB SCH ×3 (02:06→15:30)
[2020-03-02] MEDS: SODIUM CHLORIDE IVPB SCH ×3 (02:06→15:30)
[2020-03-02] MEDS: ALBUTEROL SULFATE 2 MG/5 ML SOLUTION PO SCH (05:05)
[2020-03-02] MEDS: CYPROHEPTADINE HYDROCHLORIDE 2 MG/5 ML SOLUTION PO SCH (05:05)
[2020-03-02 08:20] LABS: INR 3.01 (0.83-1.09); PROTHROMBIN TIME (PATIENT) 35.3 SEC (9.7-13.0)
[2020-03-02] MEDS ORDERED: PT OWN MED DRAWER 7, Y5N ONE (08:23)
[2020-03-02 08:24] LABS: POTASSIUM 4.3 mmol/L (3.5-5.1)
[2020-03-02 08:31] LABS: BLOOD UREA NITROGEN 31.8 mg/dL (7-18); CALCIUM 8.2 mg/dL (8.5-10.1)
[2020-03-02 08:33] LABS: CREATININE 0.6 mg/dL (0.55-1.3)
[2020-03-02] MEDS: metoPROLOL SUCCINATE 25 MG TAB.SR.24H (FP) PO SCH (08:59)
[2020-03-02] MEDS: FAMOTIDINE 20 MG TABLET PO SCH (08:59)
[2020-03-02] MEDS: LACTOBACILLUS ACIDOPHILUS 1 TABLET PO SCH (08:59)
[2020-03-02] MEDS: DEXAMETHASONE SOD PHOSPHATE 4 MG/1 ML VIAL IVPUSH SCH (08:59)
[2020-03-02] MEDS: LOSARTAN POTASSIUM 50 MG TABLET PO SCH (08:59)
[2020-03-02] MEDS: MULTIVIT-MINERALS ORAL LIQUID PO SCH (08:59)
[2020-03-02] MEDS ORDERED: LORazepam 2 MG/ML SDV VIAL IVPUSH ONE (11:15)
[2020-03-02] MEDS ORDERED: FAT EMULSION/OLIVE/SOY (CLINOLIPID) 250 ML EMULSION IV SCH (12:30)
[2020-03-02] MEDS: QUEtiapine FUMARATE 25 MG TABLET PO SCH (13:18)
[2020-03-02] MEDS: AMINO ACIDS 4.25%/D5W 1,000 ML IV SCH (13:18)
[2020-03-02] MEDS ORDERED: LORazepam 2 MG/ML SDV VIAL IVPUSH PRN (22:00)
[2020-03-02] MEDS: FAT EMULSION/OLIVE/SOY/PHOSPHO 250 ML IV SCH (22:56)
[2020-03-03 07:39] LABS: INR 2.41 (0.83-1.09); PROTHROMBIN TIME (PATIENT) 28.4 SEC (9.7-13.0)
[2020-03-03 08:06] LABS: BLOOD UREA NITROGEN 35.1 mg/dL (7-18); CALCIUM 7.8 mg/dL (8.5-10.1)
[2020-03-03 08:11] LABS: CREATININE 0.6 mg/dL (0.55-1.3)
[2020-03-03] MEDS: DEXAMETHASONE SOD PHOSPHATE 4 MG/1 ML VIAL IVPUSH SCH (11:56)
[2020-03-03] MEDS: QUEtiapine FUMARATE 25 MG TABLET PO SCH (11:56)
[2020-03-03] MEDS: LOSARTAN POTASSIUM 50 MG TABLET PO SCH (11:59)
[2020-03-03] MEDS: metoPROLOL SUCCINATE 25 MG TAB.SR.24H (FP) PO SCH (12:02)
[2020-03-03] MEDS: MULTIVIT-MINERALS ORAL LIQUID PO SCH (12:03)
[2020-03-03] MEDS: LACTOBACILLUS ACIDOPHILUS 1 TABLET PO SCH (12:16)
[2020-03-03] MEDS: FAMOTIDINE 20 MG TABLET PO SCH (12:17)
[2020-03-03] MEDS: AMINO ACIDS 4.25%/D5W 1,000 ML IV SCH (13:22)
[2020-03-03] MEDS ORDERED: MORPHINE SULFATE 2 MG/ML VIAL IVPUSH PRN (15:23)
[2020-03-03] MEDS: WARFARIN NA 2 MG TABLET PO SCH (17:24)
[2020-03-04] MEDS: AMINO ACIDS 4.25%/D5W 1,000 ML IV SCH ×2 (04:05→13:20)
[2020-03-04] MEDS: LACTOBACILLUS ACIDOPHILUS 1 TABLET PO SCH (10:41)
[2020-03-04] MEDS: metoPROLOL SUCCINATE 25 MG TAB.SR.24H (FP) PO SCH ×2 (10:41→11:58)
[2020-03-04] MEDS: DEXAMETHASONE SOD PHOSPHATE 4 MG/1 ML VIAL IVPUSH SCH (10:42)
[2020-03-04] MEDS: FAMOTIDINE 20 MG TABLET PO SCH (10:42)
[2020-03-04] MEDS: QUEtiapine FUMARATE 25 MG TABLET PO SCH (10:42)
[2020-03-04] MEDS: LOSARTAN POTASSIUM 50 MG TABLET PO SCH ×2 (10:43→11:57)
[2020-03-04] MEDS: MULTIVIT-MINERALS ORAL LIQUID PO SCH (10:43)
[2020-03-04 11:33] LABS: INR 2.74 (0.83-1.09); PROTHROMBIN TIME (PATIENT) 32.2 SEC (9.7-13.0)
[2020-03-04 11:50] LABS: BLOOD UREA NITROGEN 34.5 mg/dL (7-18); CALCIUM 8.2 mg/dL (8.5-10.1)
[2020-03-04 11:54] LABS: CREATININE 0.6 mg/dL (0.55-1.3)
[2020-03-04] MEDS ORDERED: AMINO ACIDS 4.25%/D5W 1,000 ML IV SCH (13:30)
[2020-03-04] MEDS: WARFARIN NA 2 MG TABLET PO SCH (17:24)
[2020-03-04] MEDS: FAT EMULSION/OLIVE/SOY/PHOSPHO 250 ML IV SCH (22:36)
[2020-03-05] MEDS: AMINO ACIDS 4.25%/D5W 1,000 ML IV SCH ×2 (06:50→09:20)
[2020-03-05 08:29] LABS: PROTHROMBIN TIME (PATIENT) 51.5 SEC (9.7-13.0)
[2020-03-05 08:45] LABS: POTASSIUM 3.9 mmol/L (3.5-5.1)
[2020-03-05 08:46] LABS: CALCIUM 7.9 mg/dL (8.5-10.1)
[2020-03-05 08:47] LABS: BLOOD UREA NITROGEN 35.9 mg/dL (7-18)
[2020-03-05 08:50] LABS: CREATININE 0.5 mg/dL (0.55-1.3)
[2020-03-05] MEDS: metoPROLOL SUCCINATE 25 MG TAB.SR.24H (FP) PO SCH (09:19)
[2020-03-05] MEDS: DEXAMETHASONE SOD PHOSPHATE 4 MG/1 ML VIAL IVPUSH SCH (09:19)
[2020-03-05] MEDS: LACTOBACILLUS ACIDOPHILUS 1 TABLET PO SCH (09:19)
[2020-03-05] MEDS: MULTIVIT-MINERALS ORAL LIQUID PO SCH (09:19)
[2020-03-05] MEDS: FAMOTIDINE 20 MG TABLET PO SCH (09:19)
[2020-03-05] MEDS: QUEtiapine FUMARATE 25 MG TABLET PO SCH (09:19)
[2020-03-05 09:33] LABS: INR 4.37 (0.83-1.09)
[2020-03-05] MEDS: LOSARTAN POTASSIUM 50 MG TABLET PO SCH (14:03)
[2020-03-05] MEDS: WARFARIN NA 2 MG TABLET PO SCH (17:32)
[2020-03-05 21:30] VITALS: BP 136/91; PULSE 106; TEMP 98.4
== END 2020-03-05 19:55 | disposition hospice, inpatient (51) | DRG 177 ==
LOC: JER 12:45 → JERBED 18:25 → J7W 02-15 17:56
PROVIDERS: ADMIT Internal Medicine; ATTEND Internal Medicine
PROC: XW033E5 Introduction of Remdesivir Anti-infective into Peripheral Vein, Percutaneous Approach, New Technology Group 5 (ICD-10-PCS; 2020-02-16)
PROC: XW13325 Transfusion of Convalescent Plasma (Nonautologous) into Peripheral Vein, Percutaneous Approach, New Technology Group 5 (ICD-10-PCS; principal; 2020-02-18)
DX: U07.1 COVID-19 (principal); J12.82 Pneumonia due to coronavirus disease 2019; J69.0 Pneumonitis due to inhalation of food and vomit; J96.01 Acute respiratory failure with hypoxia; R64 Cachexia; I48.19 Other persistent atrial fibrillation; Z68.23 Body mass index [BMI] 23.0-23.9, adult; I10 Essential (primary) hypertension; E78.5 Hyperlipidemia, unspecified; M54.5 Low back pain; K40.90 Unilateral inguinal hernia, without obstruction or gangrene, not specified as recurrent; J44.9 Chronic obstructive pulmonary disease, unspecified; K57.90 Diverticulosis of intestine, part unspecified, without perforation or abscess without bleeding; R54 Age-related physical debility; R62.7 Adult failure to thrive; R29.6 Repeated falls; D72.829 Elevated white blood cell count, unspecified; R77.8 Other specified abnormalities of plasma proteins; I13.10 Hypertensive heart and chronic kidney disease without heart failure, with stage 1 through stage 4 chronic kidney disease, or unspecified chronic kidney disease; N18.2 Chronic kidney disease, stage 2 (mild); I49.8 Other specified cardiac arrhythmias; E86.0 Dehydration; M15.9 Polyosteoarthritis, unspecified; E83.42 Hypomagnesemia; Z85.51 Personal history of malignant neoplasm of bladder; Z85.46 Personal history of malignant neoplasm of prostate; Z79.01 Long term (current) use of anticoagulants
CPT/HCPCS: 36415; 70450-TC; 71045-TC-FY; 71250-TC; 72125-TC; 72192-TC; 80048; 80053; 81003; 82550; 82553; 82728; 82962; 83605; 83615; 83735; 84100; 84443; 84484; 85025; 85027; 85379; 85610; 85651; 86140; 86850; 86900; 86901; 87040; 87077; 87086; 87324; 87449; 87804; 87899; 93005; 93010; 94010; 97116-GP; 97162-GP; 99285-25; C9399; C9803; J0131; P9017; U0003